=== PATIENT | male | born 1940 | race Caucasian/White ===

== ENCOUNTER → 2018-08-26 11:13 | Outpatient (CLI) | payer MEDICARE, SELFPAY ==
[2018-08-26 09:59] VITALS: BMI 24.2
[2018-08-26 11:53] LABS: Hematocrit 30.6 % (40-54); Hemoglobin 10.2 g/dl (13.0-16.5); Mean Corp Hgb Conc 33.3 g/gl (32-36); Platelet Count 221 K/mm3 (150-450); RBC Distribution Width CV 14.1 % (11.6-14.6); RBC Distribution Width SD 46.6 fl (35.1-43.9)
[2018-08-26 11:56] LABS: Differential Indicated MANUAL DIFF
[2018-08-26 11:58] LABS: International Normalized Ratio 1.2; Prothrombin Time (Protime)PT. 15.2 SECONDS (11.7-14.9)
[2018-08-26 11:59] LABS: Partial Thromboplast Time 37.7 Seconds (24.1-36.2)
[2018-08-26 12:33] LABS: Anisocytosis 1+; Lymphocyte 83 % (19-41); Monocyte 4 % (0-10); Neutrophil-Segmented 13 % (47-70); Platelet Estimate ADEQUATE (ADEQ); Red Cell Morphology N CHROM NORMAL (NORM C&C); Total Cells Counted 100 (MANUAL DIFF)
[2018-08-26 12:34] LABS: POSITIVE COUNT YES; POSITIVE DIFFERENTIAL NO; POSITIVE MORPHOLOGY YES
[2018-08-26 12:35] LABS: Absolute Neutrophil Count 6.1 X10^3/uL (2.0-7.7)
[2018-08-26 12:36] LABS: Absolute Lymphocyte Count 38.97 X10^3/ul (0.83-4.51); Lymphocyte # 38.97 X10^3/ul (4.0)
[2018-08-27 13:55] LABS: Pathologist Review Reviewed
== END ==
PROVIDERS: Referring Provider Internal Medicine Critical Care Medicine; Visit Provider Internal Medicine Critical Care Medicine
DX: R91.8 Other nonspecific abnormal finding of lung field (principal)
CPT/HCPCS: 36415; 85025; 85610; 85730

== ENCOUNTER → 2018-08-29 08:08 | Outpatient (CLI) | payer MEDICARE, SELFPAY ==
[2018-08-26 09:59] VITALS: BMI 24.2
[2018-08-29] VITALS (10 sets, daily range): BP systolic 105–137; BP diastolic 51–72; PULSE 80–85; RESP 16–24; TEMP 36.6; O2SAT 92–98; BMI 24.1
--- NOTE | 2018-08-29 | IMM_PTH ---
PATIENT: JENA BROOKS LOC: CT U#:[id number] AGE/SX: 84/M ROOM: RE08/29/[address]: Dr. Alex Quiroz MD : 1940 BED: DIS: SPEC #: [id number] RECD: 08/30/18 10:10 STATUS: MIRELA REViki #: [id number] ROMEO: 08/29/18 00:[address]: Alex Quiroz DEPT: IMMUNOHISTOCHEMISTRY RECD BY: Roxana Wagner ENTERED: 08/30/18 10:17 SP TYPE: IMMUNO OTHR DR: No Primary Care Phys Tissues: Lung, NOS Procedures: NAPSIN A (add) CK5-6 (add) P40 (add) TTF1 (initial) PHYSICIAN & INSTITUTION [place] [id number] SPECIMEN INFORMATION: Tissue Source: Left upper lobe lung mass, CT-guided biopsy Clinical Info: Left upper lobe lung mass Specimen Number: [id number] CPT code: 72764, 73333 x3 METHODOLOGY: Deparaffinized sections of prefer/formalin-fixed tissue or PAP/DQ stained slides are incubated with monoclonal/polyclonal antibodies/oligonucleotide probes. Localization is made via biotin free immunoperoxidase method. Appropriate controls are performed and reacted as expected. Results on target cell population are indicated in the following table: RESULTS: ANTIBODY / CLONE RESULT P40 (BC28) positive TTF-1 (8G7G3/1) negative Napsin A (Rabbit Polyclonal) negative CK5-6 (D5 & 1684) positive These tests were developed and their performance characteristics determined by [facility]. They may not have been cleared or approved by the U.S. Food and Drug Administration. The FDA has determined that such clearance or approval is not necessary. INTERPRETATION: Left upper lobe lung mass, CT-guided biopsy: The results of immunohistochemistry support the diagnosis of squamous cell carcinoma. CE:jamari 08/30/18
--- NOTE | 2018-08-29 | ASPIGT_PTH ---
PATIENT: JENA BROOKS LOC: [facility] U#:[id number] AGE/SX: 84/M ROOM: RE08/29/[address]: Dr. Alex Quiroz MD : 1940 BED: DIS: SPEC #: [id number] RECD: 08/29/18 10:36 STATUS: MIRELA RUTH #: [id number] ROMEO: 08/29/18 00:[address]: Alex Quiroz DEPT: SURGICAL PATHOLOGY RECD BY: Ryan Saleh ENTERED: 08/29/18 10:36 SP TYPE: ASP RAD OTHR DR: No Primary Care Phys Tissues: Lung, NOS Procedures: FNA Specimen Adequacy Special Stain Group II Mucicarmine Stain (control) Surgery Specimen Level IV Imprint (control) HEADER OPERATION: CT-guided left lung biopsy PRE-OP DIAGNOSIS: Left upper lobe lung mass TISSUE SUBMITTED: Left upper lobe lung mass 20 gauge core x4 MICROSCOPIC DIAGNOSIS Left upper lobe lung mass, CT-guided biopsy: Invasive squamous cell carcinoma, poorly differentiated, with necrosis. Mucin stain with appropriate control is negative. CE:jamari 08/30/18 COMMENT The specimen is evaluated at the time of biopsy by Dr. Emerson. Immediate Evaluation = Atypical cells present. Adequate for evaluation. Immunohistochemistry ([id number]) supports the above diagnosis. MICROSCOPIC DESCRIPTION Slides are reviewed. GROSS DESCRIPTION Received in fixative is one container labeled with the patient's name and designated 20 gauge core x4 left upper lobe lung mass. The specimen consists of four reddish-brown needle core biopsies ranging in length from 0.2 to 0.5 cm. The specimen is totally submitted in one cassette. / CE:jamari 08/29/18 TC:0 CPT: 94847, 37269, 64161
--- NOTE | 2018-08-29 08:10 | CT_ITS ---
PROCEDURE: CT GUIDED CORE NEEDLE BIOPSY OF A left lower lobe LUNG LESION INDICATION: Male, 77 years old. Left lower lobe mass. PHYSICIAN: Dr. Lydia Reina CONSENT: Written informed consent was obtained having explained the risks including hemorrhage and pneumothorax, benefits and alternatives in detail with the patient who accepted the risks and agreed to proceed. Laboratory review and clinical assessment was performed. CONSCIOUS SEDATION PROTOCOL: The Drugs used were: 2 mg Versed, IV., and 50 mcg Fentanyl, IV. The sedation time was: 20 minutes. Conscious sedation was started at 9:22 AM and terminated at 9:42 AM. The conscious sedation protocol was independently monitored. RADIATION DOSAGE (If Supplied By Facility): CTDIvol = ( 18 ) mGy, DLP = ( 376.43 ) mGycm Individualized dose optimization techniques were used for this CT. TECHNIQUE: The patient was placed in the prone position. A noncontrast CT was performed to localize the lesion in the left lower lobe . The skin surface was prepped and draped in a sterile fashion. 1% lidocaine was used for local anesthesia. Using CT guidance, a 20-gauge coaxial biopsy device was advanced to the periphery of the lesion. A total of 4 core specimens were obtained. The specimens were placed in a formalin solution. A post procedure CT demonstrated no adverse sequelae or pneumothorax. The patient tolerated the procedure well without adverse event. A negative biopsy does not exclude malignancy. Further imaging or clinical followup based on patient condition and degree of clinical suspicion for malignancy. Suggest rebiopsy, if biopsy results do not match with clinical scenario. CT/Biopsy/Inj or Needle Placement IMPRESSION: 1. CT directed core needle biopsy of the left lower lobe mass using CT image guidance with image documentation as described. Pathology results are pending. 2. Conscious Sedation protocol utilized with independent monitoring. Electronically Signed: Aramis Freeman, at 10:16 EDT , Service support ,
[2018-08-29] MEDS: Midazolam 2 MG/2 ML Syringe IV (09:22)
[2018-08-29] MEDS: fentaNYL 100 MCG/2 ML Ampul IV (09:22)
--- NOTE | 2018-08-29 09:30 | RAD_ITS ---
STUDY: X-RAY CHEST REASON FOR EXAM: Male, 77 years old. Immediate left post lung biopsy. TECHNIQUE: AP inspiration and expiration views. COMPARISON: None. FINDINGS: The patient is status post left lung biopsy. There is no evidence of pneumothorax. Moderate left pleural effusion with underlying infiltration and/or atelectasis.. RAD/Chest Insp/Exp 2 View IMPRESSION: No evidence of pneumothorax on the immediate post left lung biopsy radiograph. Moderate left pleural effusion with underlying infiltration and/or atelectasis. Electronically Signed: Aramis Freeman, at 13:30 EDT , Service support ,
--- NOTE | 2018-08-29 11:30 | RAD_ITS ---
STUDY: X-RAY CHEST REASON FOR EXAM: Male, 77 years old. 2 hours post lung biopsy. TECHNIQUE: Single AP portable view of the chest. COMPARISON: 29 August 2018 FINDINGS: Left lung atelectasis and moderate layering effusion similar to prior exam. There is no demonstrated pleural abnormality. Normal size heart. Normal mediastinum and bk. Normal visualized pulmonary arteries. There is atherosclerotic calcification of the aortic arch with tortuosity. Normal visualized thoracic spine. Normal visualized ribs, clavicles, and shoulders. There is no demonstrated abnormality of the visualized soft tissue structures of the upper abdomen. RAD/Chest Insp/Exp 2 View IMPRESSION: Overall similar exam compared to previous with moderate layering effusion and left lung atelectasis. Electronically Signed: Hugo Gilman DO at 9:31 EDT , Service support ,
== END ==
PROVIDERS: Referring Provider Internal Medicine Critical Care Medicine; Visit Provider Internal Medicine Critical Care Medicine
DX: C34.12 Malignant neoplasm of upper lobe, left bronchus or lung (principal)
CPT/HCPCS: 32405; 71046; 77012; 88172; 88305; 88313; 88341; 88342; 99156; 99157; J7040; A4216

== ENCOUNTER → 2018-09-13 13:05 | Outpatient (CLI) | payer MEDICARE, SELFPAY ==
[2018-08-29 08:38] VITALS: BMI 24.1
--- NOTE | 2018-09-13 | IMM_PTH ---
PATIENT: JENA BROOKS LOC: [facility]#:[id number] AGE/SX: 84/M ROOM: RE09/13/[address]: Dr. Juan Carlos Pierre DO : 1940 BED: DIS: SPEC #: [id number] RECD: 09/19/18 11:26 STATUS: MIRELA REViki #: [id number] ROMEO: 09/13/18 00:[address]: Juan Carlos Pierre DEPT: IMMUNOHISTOCHEMISTRY RECD BY: Roxana Wagner ENTERED: 09/19/18 11:27 SP TYPE: IMMUNO OTHR DR: No Primary Care Phys Tissues: PARACENTESIS FLUID Procedures: CK5-6 (initial) Christos Ret (add) CK14 (add) YVES (add) P53 (add) P40 (add) PHYSICIAN & INSTITUTION [place] [phone] SPECIMEN INFORMATION: Tissue Source: Paracentesis fluid Clinical Info: Lung CA, pleural effusion Specimen Number: [id number] CPT code: 55687, 22342 x5 METHODOLOGY: Deparaffinized sections of prefer/formalin-fixed tissue or PAP/DQ stained slides are incubated with monoclonal/polyclonal antibodies/oligonucleotide probes. Localization is made via biotin free immunoperoxidase method. Appropriate controls are performed and reacted as expected. Results on target cell population are indicated in the following table: RESULTS: ANTIBODY / CLONE RESULT P40 (BC28) positive, focal CK5-6 (D5 & 1684) positive, focal CK14 (LL002) negative YVES (E29) positive CALRET (polyclonal) negative P53 (DO-7) negative These tests were developed and their performance characteristics determined by [facility]. They may not have been cleared or approved by the U.S. Food and Drug Administration. The FDA has determined that such clearance or approval is not necessary. INTERPRETATION: Paracentesis fluid: Rare atypical epithelioid cells with squamoid immunophenotype. AM:jamari 09/20/18 Case has been reviewed in consultation with Dr. Stephens who concurs with the above diagnosis. IDC:JONEL
--- NOTE | 2018-09-13 | FLU_PTH ---
PATIENT: JENA BROOKS LOC: [facility]#:[id number] AGE/SX: 84/M ROOM: RE09/13/[address]: Dr. Juan Carlos Pierre DO : 1940 BED: DIS: SPEC #: [id number] RECD: 09/13/18 14:18 STATUS: MIRELA MIRANDA #: [id number] ROMEO: 09/13/18 00:[address]: Juan Carlos Pierre DEPT: CYTOLOGY RECD BY: Eamon Mccarthy ENTERED: 09/13/18 14:56 SP TYPE: Fluid OTHR DR: Margo Primary Care Phys Tissues: THORACIC FLUID Procedures: Special Stain Group II Surgery Specimen Level IV Cytospin Fluid HEADER OPERATION: Ultrasound-guided left paracentesis PRE-OP DIAGNOSIS: Lung CA; pleural effusion TISSUE SUBMITTED: Paracentesis fluid for cytology DIAGNOSIS CYTOLOGY Paracentesis fluid for cytology (cytospin and cell block): Rare atypical epithelioid cells with squamoid immunophenotype. AM:jamari 09/16/18 COMMENT Immunohistochemistry ([id number]) supports the above diagnosis. Case has been reviewed in consultation with Dr. Stephens who concurs with the above diagnosis. IDC:SJ CYTOLOGY STUDY Slides are reviewed. CYTOLOGY GROSS Received is 60 ml of cloudy red fluid labeled with the patient's name and and designated per the requisition as thoracentesis. Submitted for cytology preparation including cell block. / 09/13/18 TC:? CPT: 63834, 91184
--- NOTE | 2018-09-13 13:09 | US_ITS ---
PROCEDURE: ULTRASOUND GUIDED THORACENTESIS. DATE: September 13, 2018. INDICATION: Male, 78 years old. Left pleural effusion PHYSICIAN: Aramis Freeman M.D. PROCEDURE: The risks, benefits, and alternatives to the procedure were explained to the patient. The specific risks of bleeding, infection, and pneumothorax requiring chest tube insertion were discussed and accepted. Written informed consent was obtained. Ultrasonographic evaluation of the left lower pleural space was carried out. An adequate pocket was identified. The patient was placed in the sitting, upright position. The overlying skin was prepped and draped in sterile fashion. 1% lidocaine was administered subcutaneously for local anesthesia. Under ultrasound guidance, a 5 Romanian thoracentesis needle/catheter system was advanced into the left posterior lower pleural fluid collection. Approximately 970 mL of blood-tinged fluid was drained. The catheter was removed, and a sterile dressing was applied. A specimen was collected and sent to the laboratory for analysis, as requested by the referring clinician. The patient tolerated the procedure well. A chest x-ray was ordered. US/Thoracentesis W US IMPRESSION: Ultrasound-guided left thoracentesis. Electronically Signed: Aramis Freeman, at 14:51 EDT , Service support ,
[2018-09-13 13:51] VITALS: BP 116/64; PULSE 73; RESP 16; O2SAT 97
[2018-09-13 13:52] VITALS: PULSE 72; RESP 16; O2SAT 93
[2018-09-13 13:57] VITALS: BP 114/63; PULSE 82; RESP 18; O2SAT 94
--- NOTE | 2018-09-13 14:05 | RAD_ITS ---
STUDY: X-RAY CHEST REASON FOR EXAM: Male, 78 years old. Status post left thoracentesis. TECHNIQUE: AP inspiration and expiration views. COMPARISON: Comparison is made with prior examination dated August 29, 2018. FINDINGS: The patient is status post left thoracentesis. There is no evidence of pneumothorax. Residual left pleural-parenchymal changes. Osteopenia and loss of height of the mid dorsal vertebrae. RAD/Chest Insp/Exp 2 View IMPRESSION: Status post left thoracentesis. No evidence of pneumothorax. Electronically Signed: Aramis Freeman, at 14:43 EDT , Service support ,
[2018-09-13 14:12] VITALS: BP 133/76; PULSE 75; RESP 16; O2SAT 96
[2018-09-13 14:20] VITALS: BP 138/72; PULSE 76; RESP 16
[2018-09-13 14:20] LABS: Cytology, Body Fluid / CSF SEE PATHOLOGY REPORT
== END ==
PROVIDERS: Referring Provider Internal Medicine Hematology & Oncology; Visit Provider Internal Medicine Hematology & Oncology
DX: C34.90 Malignant neoplasm of unspecified part of unspecified bronchus or lung (principal); J90 Pleural effusion, not elsewhere classified
CPT/HCPCS: 32555; 71046; 88108; 88305; 88313; 88341; 88342

== ENCOUNTER → 2018-09-16 08:02 | Outpatient (CLI) | payer MEDICARE, SELFPAY ==
[2018-08-29 08:38] VITALS: BMI 24.1
--- NOTE | 2018-09-16 08:00 | PET_ITS ---
EXAMINATION: FDG PET/CT INDICATIONS: An 78-year-old male with reported history of carcinoma of the lung presenting for apparent initial staging examination. COMPARISON EXAMINATION: None available INDEX LESION SIZE SUV INTERPRETATION Left mid posterior lung field, left lower lobe 6.1 x 6.9-cm (frame 193) 11.6 Fulfills quantitative criteria for viable neoplasm Mediastinal structures 16.5-mm (largest) (frame 192) 3.4 (max) Fulfills borderline quantitative criteria for viable neoplasm Left hemithorax pleural interface 9.6 Fulfills quantitative criteria for viable neoplasm Bilateral axillary and infraclavicular lymph nodes, right-left lateral neck 27.5-mm (largest) (frame 210) 5.1 (max) Fulfills quantitative criteria for viable neoplasm Abdominal retroperitoneum, bilateral hemipelvis, left inguinal lymph node distributions 31.9-mm (largest) (frame 59) 4.3 (max) Fulfills quantitative criteria for viable neoplasm TECHNIQUE: Following the intravenous administration of 13.56 mCi of F-18 deoxyglucose via the right hand, multiplanar image acquisitions of the neck, chest, abdomen and pelvis to level of mid thigh, obtained at one hour post radiopharmaceutical administration contemporaneously interpreted with the current CT of the neck, chest, abdomen and pelvis to level of mid thigh, dated 09/16/18 via coregistration reveal: SERUM GLUCOSE LEVEL: 78 mg/dl. HEIGHT: 67 inches. WEIGHT: 167 lbs. FINDINGS: 1. Heterogeneous enhanced glucose metabolism is defined in the left mid posteromedial hemithorax pulmonary parenchyma with a component of central photopenia localized to the superior segment left lower lobe. The calculated maximal standard uptake value is 11.6. The maximal axial diameter of the corresponding parenchymal density-mass on review of CT of the chest dated 09/16/18 is 6.1-cm (transverse) x 6.9-cm (AP). 2. Facilitated FDG concentration is noted in the carinal and subcarinal mediastinum generating a calculated maximal standard uptake value of 3.4. The maximal axial diameter of the largest corresponding hypermetabolic soft tissue density on review of CT of the chest dated 09/16/18 is 16.5-mm (AP). 3. Diffuse increased FDG concentration is noted throughout the left mid-lower hemithorax at the pleural interface generating a calculated maximal standard uptake value of 9.6. 4. Heterogeneous increased FDG concentration is noted in the bilateral axillary, infraclavicular regions, right-left lateral neck involving level IIA-B. The calculated maximal standard uptake value is 5.1. The maximal axial diameter of the largest individual hypermetabolic soft tissue density on review of CT of the chest dated 09/16/18 is 27.5-mm (AP). 5. Facilitated FDG concentration is demonstrated in the bilateral lower abdominal retroperitoneum extending to the right-left hemipelvis and left inguinal lymph node distributions. The calculated maximal standard uptake value is 4.3. The maximal axial diameter of the largest corresponding hypermetabolic soft tissue density on review of CT of the abdomen and pelvis dated 09/16/18 is approximately 31.9-mm (AP). 6. Normal physiologic distribution of the radiopharmaceutical is apparent in the hepatic (3.0) and splenic parenchyma, both renal units, bladder and visualized intestinal tract. The visualized portion of the cerebral cortex demonstrate symmetric and preserved glucose metabolism. Diffuse radiopharmaceutical concentration is noted in all four quadrants of the abdomen and pelvis. Pertinent CT findings are as follows: CHEST: The left hemithorax pleural effusion demonstrates no evidence of quantitatively significant increased glucose metabolism. There is atherosclerotic calcification defined in the thoracic aorta without evidence of dilatation-aneurysm formation. Coronary arterial calcification is observed. Calcified mediastinal soft tissue is non-glucose avid. There are no additional parenchymal densities-nodules noted in the right-left hemithorax demonstrating discernible increased glucose metabolism. ABDOMEN AND PELVIS: Calcification is noted within the pancreatic body. Calcified granuloma formation is defined in the splenic parenchyma. There is atherosclerotic calcification defined in the abdominal aorta without evidence of dilatation-aneurysm formation. Pelvic arterial calcification is observed. A fat containing left inguinal hernia is noted. Right inguinal soft tissue densities with fatty hilus formation are non-glucose avid. Dystrophic calcification is manifest within the prostate gland without evidence of facilitated FDG distribution. SKELETAL: Degenerative changes are noted in the cervical, thoracic and lumbar spine. A compression deformity is noted at the level of the twelfth thoracic vertebra without evidence of facilitated FDG uptake. PET/PET/CT Tumor Base -Thigh Init IMPRESSION: 1. ABNORMAL EXAMINATION INDICATIVE OF MALIGNANT VIABLE NEOPLASM. 2. Increased glucose concentration observed in the left mid posterior hemithorax pulmonary parenchyma, left lower lobe, fulfills quantitative criteria or viable neoplasm. 3. Mediastinal hypermetabolic foci fulfill borderline quantitative criteria for viable neoplasm. 4. Facilitated FDG distribution noted in the left hemithorax pleural interface fulfills quantitative criteria for viable pleural metastasis. (Portillo, et al, Chest 122:1918, 2002). 5. Right and left axillary and infraclavicular, as well as bilateral-lateral neck hypermetabolic foci fulfill quantitative criteria for malignant transformation. 6. There is evidence of apparent viable metastatic disease within the abdominal retroperitoneum, bilateral hemipelvis and left inguinal lymph node distributions. Electronic Signature Rito Dyer D.O. Electronically Signed: Rito Dyer DO at 23:02 EDT Tel , Service support ,
== END ==
PROVIDERS: Referring Provider Internal Medicine Hematology & Oncology; Visit Provider Internal Medicine Hematology & Oncology
DX: C34.32 Malignant neoplasm of lower lobe, left bronchus or lung (principal)
CPT/HCPCS: 78815; A9552

== ENCOUNTER 2018-10-02 10:26 | Inpatient (IN) | payer MEDICARE, SELFPAY ==
[2018-08-29 08:38] VITALS: BMI 24.1
[2018-10-02] VITALS (13 sets, daily range): BP systolic 103–152; BP diastolic 59–93; PULSE 64–98; RESP 16–30; TEMP 36.3–37; O2SAT 89–100; BMI 20.9; BMI 19.8
--- NOTE | 2018-10-02 | FLU_PTH ---
PATIENT: JENA BROOKS LOC: [facility] U#:[id number] AGE/SX: 78/M ROOM: [facility] RE10/03/[address]: Dr. Holli Cintron MD : 1940 BED: 1 DIS: 10/05/2018 SPEC #: [id number] RECD: 10/02/18 16:18 STATUS: MIRELA REQ #: [id number] ROMEO: 10/02/18 00:[address] RECD BY: Eamon Mccarthy ENTERED: 10/03/18 10:13 SP TYPE: Fluid OTHR DR: MD Dr. Alex Urbano MD Dr. Paul Masci, DO No Primary Care Phys Tissues: THORACIC FLUID Procedures: Special Stain Group II Surgery Specimen Level IV Cytospin Fluid HEADER OPERATION: Ultrasound-guided thoracentesis, left PRE-OP DIAGNOSIS: Left pleural effusion TISSUE SUBMITTED: Thoracentesis fluid for cytology DIAGNOSIS CYTOLOGY Thoracentesis fluid for cytology (cytospin and cell block): Rare atypical epithelioid cells noted, suspicious for metastatic squamous cell carcinoma. Consistent with lymphocytic effusion, suspicious for involvement by low grade lymphoproliferative disorder. See comment. SJ:jamari 10/04/18 COMMENT Immunohistochemistry ([id number]) supports the above diagnosis. Correlation with clinical findings and appropriate follow up are necessary. Please make reference to previous specimen ([id number]) left upper lobe lung mass, CT-guided biopsy with diagnosis of invasive squamous cell carcinoma, poorly differentiated with necrosis and ([id number]) paracentesis fluid for cytology with diagnosis of rare atypical epithelioid cells with squamoid immunophenotype. Case has been reviewed in consultation with Dr. Munoz who concurs with the above diagnosis. IDC:AM CYTOLOGY STUDY Slides are reviewed. CYTOLOGY GROSS Received is 30 ml of cloudy red fluid labeled with the patient's name and and designated per the requisition as thoracentesis. Submitted for cytology preparation including cell block. / 10/03/18 TC:5 CPT: 62422, 07340
--- NOTE | 2018-10-02 | IMM_PTH ---
PATIENT: JENA BROOKS LOC: [facility] U#:[id number] AGE/SX: 78/M ROOM: [facility] RE10/03/[address]: Dr. Holli Cintron MD : 1940 BED: 1 DIS: 10/05/2018 SPEC #: [id number] RECD: 10/04/18 09:50 STATUS: MIRELA REQ #: [id number] ROMEO: 10/02/18 00:[address]: Kailash Willard DEPT: IMMUNOHISTOCHEMISTRY RECD BY: Roxana Wagner ENTERED: 10/04/18 09:52 SP TYPE: IMMUNO OTHR DR: MD Dr. Alex Urbano MD Dr. Paul Masci, DO No Primary Care Phys Tissues: THORACIC FLUID Procedures: BCL-2 (add) BCL-6 (add) Christos Ret (add) CD10 (add) CD20 (add) CD23 (add) CD3 (add) CD43 (add) CD45 (add) CD5 (add) CD79A (add) CK5-6 (add) CK8 (add) CYCLIN (add) KI-67 (add) TTF1 (add) P40 (add) CK7 (initial) PHYSICIAN & INSTITUTION [place] [id number] SPECIMEN INFORMATION: Tissue Source: Thoracentesis fluid Clinical Info: Left pleural effusion Specimen Number: [id number] CPT code: 83795, 19001 x17 METHODOLOGY: Deparaffinized sections of prefer/formalin-fixed tissue or PAP/DQ stained slides are incubated with monoclonal/polyclonal antibodies/oligonucleotide probes. Localization is made via biotin free immunoperoxidase method. Appropriate controls are performed and reacted as expected. Results on target cell population are indicated in the following table: RESULTS: ANTIBODY / CLONE RESULT CK7 (OV-TL12/30) negative CK8 (63mejmC24) negative CD3 (PS1) negative CD5 (SP10) negative CD10 (56C6) negative CD20 (L26) positive CD23 (1B12) negative CD43 (L60) negative CD45 (RP2/18) positive CD79a (11E3) positive BCL-2 (bcl-2/100/D5) positive BCL-6 (AX118V/A8) negative Cyclin D1/BCL-1 (SP4) negative TTF-1 (8G7G3/1) negative CALRET (polyclonal) negative CK5-6 (D5 & 1684) positive, rare cells P40 (BC28) positive, rare cells Ki-67 (30-9) positive, very low These tests were developed and their performance characteristics determined by [facility]. They may not have been cleared or approved by the U.S. Food and Drug Administration. The FDA has determined that such clearance or approval is not necessary. INTERPRETATION: Thoracentesis fluid: Rare atypical epithelioid cells noted, suspicious for metastatic squamous cell carcinoma. Consistent with lymphocytic effusion, suspicious for involvement by B-cell low grade lymphoproliferative disorder. Clinical correlation necessary. SJ:jamari 10/07/18 Case has been reviewed in consultation with Dr. Munoz who concurs with the above diagnosis. IDC:AM
[2018-10-02 11:41] LABS: Basophil# 0.08 X10^3/uL; Basophil% 0.2 % (0-1); Eosinophil# 0.03 X10^3/uL; Eosinophils% 0.1 % (0-5); Hematocrit 32.1 % (40-54); Hemoglobin 10.5 g/dL (13.0-16.5); Lymphocyte # 30.27 X10^3/ul (4.0); Lymphocyte % 78.7 % (19-41); Mean Corp Hgb Conc 32.7 g/dL (32-36); Mean Corpuscular Volume 88.7 fL (80-94); Mean Platelet Vol. 10.1 fl (6.2-12.0); Monocyte# 2.64 X10^3/uL; Monocyte% 6.9 % (0-10); NRBC Flagged by Analyzer 0 % (0-5); Neutrophil # 5.34 X10^3/uL (2.7-7.7); Neutrophil % 13.8 % (47-70); POSITIVE COUNT YES; POSITIVE DIFFERENTIAL YES; POSITIVE MORPHOLOGY YES; Platelet Count 271 K/mm3 (150-450); RBC Distribution Width CV 14.2 % (11.6-14.6); RBC Distribution Width SD 45.3 fl (35.1-43.9); Red Blood Count 3.62 M/mm3 (4.6-6.2)
[2018-10-02] MEDS: 0.9% Normal Saline 1,000 ML 1000 ML IV (11:43)
[2018-10-02 11:50] LABS: Anion Gap 3 (5-15); BUN 29 mg/dL (7-18); BUN/Creat Ratio 30.5 RATIO (10-20); Calcium,Total 9.9 mg/dL (8.5-10.1); Chloride 102 mmol/L (98-107); Creatinine, Serum 0.95 mg/dL (0.70-1.30); Differential Indicated SCAN CRITERIA MET; EST Glomerular Filtration Rate 81 mL/min (>60); Est Glom Filt Rate - Afr Amer 98 mL/min (>60); Estimated Creatinine Clearance 59.68 ml/min; Glucose 96 mg/dL (74-106); Potassium 4.2 mmol/L (3.5-5.1); Sodium Level 138 mmol/L (136-145); White Blood Count 38.5 K/mm3 (4.4-11.0)
--- NOTE | 2018-10-02 11:50 | RAD_ITS ---
STUDY: X-RAY CHEST REASON FOR EXAM: Male, 78 years old. Weakness. History of lung cancer. TECHNIQUE: Single AP portable view of the chest. COMPARISON: Chest, September 13, 2018. FINDINGS: There is increasing opacification left hemithorax with minimal aeration seen in the apex. The right lung appears clear. There is no demonstrated right pleural abnormality. Heart size is impossible to evaluate. The right mediastinum and bk appear normal. The aorta is obscured. No visualized osseous changes. There is no demonstrated abnormality of the visualized soft tissue structures of the upper abdomen. RAD/Chest PA and Lateral IMPRESSION: Increasing opacification left hemithorax without other major change from September 13, 2018. Electronically Signed: Matt Newton DO at 12:06 EDT Tel [phone], Service support ,
--- NOTE | 2018-10-02 11:51 | ED.RN ---
LAB RESULTED WBC 38.5, PHYSICIAN NOTIFIED
[2018-10-02 12:14] LABS: Atypical Lymphocyte 3+ %
[2018-10-02 12:15] LABS: Smudge Cells RARE
--- NOTE | 2018-10-02 12:52 | ED.DCSUM_ITS ---
History of Present Illness Chief Complaint: Weakness Informant: Patient, Family Onset: Yesterday Narrative: Patient here with significant other sent over from chemo radiation for increasing weakness. Spouse states weakness started yesterday. Diagnosed with invasive squamous cell cancer left lung last month or the end of July, followed by Dr. Pierre oncology, Dr. Elizabeth radiology oncologist, reports finished his 10th treatment today. Patient was too weak to get out of the wheelchair. I discussed with nursing who called over. For concerns of dehydration and decreased oral intake. Denies any vomiting or diarrhea. Denies cough, denies any urinary symptoms. Lives with his spouse, ambulates with a cane when needed. Denies any pain. He had a smoking history over 50 years ago. Prior similar symptoms: No Past Medical History - Allergies and Home Meds Allergies/Adverse Reactions: Allergies No Known Allergies Allergy (Verified 10/02/18 10:27) Smoking Status: Former smoker - Family History Paternal Family History: Family History (Last Updated 08/26/18 @ 10:03 by Sho Mars) Brother Throat cancer Father Heart disease Emphysema of lung Mother Diabetes Review of Systems General: Denies: Chills, Fever, Sweats Eyes: Denies: Visual changes - bilaterally, Diplopia ENT: Denies: Rhinorrhea, Sore throat Cardiovascular: Denies: Chest pain, Palpitations Respiratory: Denies: Dyspnea, Cough, Dyspnea on exertion Gastrointestinal: Denies: Abdominal pain, Nausea, Vomiting, Diarrhea, Melena, Hematochezia Genitourinary: Denies: Dysuria, Hematuria, Frequency Musculoskeletal: Denies: Back pain, Extremity Pain Skin: Denies: Rash, Wounds Neurological: Reports: Weakness. Denies: Headache, Numbness Physical Exam Vital Signs/Narrative: Vital Signs Temp Pulse Resp BP Pulse Ox 10/02/18 10:28 97.5 F L 93 18 120/66 97 Inital Vital Signs reviewed: Yes General: Cachectic, No Acute Distress Head: Normocephalic, Atraumatic Eyes: Perrl, EOMI ENT: Moist mucous membranes, No rhinorrhea Neck: Supple, Nontender Cardiovascular: Regular rate, Regular rhythm, No murmurs Respiratory: No distress, CTA bilaterally, Chest nontender Abdomen: Soft, Nontender, Nondistended, Normal bowel sounds Back: Nontender, Normal Inspection Extremities: Nontender, No edema Skin: Normal color, No rash Neurological: Alert, Oriented x3, Cranial nerves II-XII grossly intact, Normal Sensation Psychological: Normal affect, Normal Mood Diagnostic/Tx/Re-eval Chest X-Ray - ED: 2 View, Read by Radiologist, Left Effusion Clinical Impression(s) from Imaging Studies Chest X-Ray 10/02/18 11:50 IMPRESSION: Increasing opacification left hemithorax without other major change from September 13, 2018. Electronically Signed: Matt Newton DO at 12:06 EDT Tel [phone], Service support , Abnormal Lab Results 10/02/18 10/02/18 10/02/18 11:28 11:28 11:28 WBC 38.5 H* RBC 3.62 L Hgb 10.5 L Hct 32.1 L MCV 88.7 MCH 29.0 MCHC 32.7 RDW Std Deviation 45.3 H RDW Coeff of Mckenzie 14.2 Plt Count 271 MPV 10.1 Immature Gran % (Auto) 0.300 Neut % (Auto) 13.8 L Lymph % (Auto) 78.7 H [place] % (Auto) 6.9 Eos % (Auto) 0.1 Baso % (Auto) 0.2 Absolute Neuts (auto) Not Reportable Absolute Nucleated RBC 0.00 Nucleated RBC % 0 Differential Comment Diff Path Review May foll Atypical Lymphocytes 3+ Smudge Cells RARE PT 15.8 H INR 1.3 APTT 37.7 H Sodium 138 Potassium 4.2 Chloride 102 Carbon Dioxide 33.0 H Anion Gap 3 L BUN 29 H Creatinine 0.95 Estim Creat Clear Calc 59.68 Est GFR (MDRD) Af Amer 98 Est GFR (MDRD) Non-Af 81 BUN/Creatinine Ratio 30.5 H Glucose 96 Calcium 9.9 Urine Color Urine Clarity Urine pH Ur Specific [place] Urine Protein Urine Glucose (UA) Urine Ketones Urine Occult Blood Urine Nitrite Urine Bilirubin Urine Urobilinogen Ur Leukocyte Esterase Urine RBC Urine WBC Ur Squamous Epith Cells Amorphous Sediment Urine Bacteria Urine Mucus 10/02/18 12:56 WBC RBC Hgb Hct MCV MCH MCHC RDW Std Deviation RDW Coeff of Mckenzie Plt Count MPV Immature Gran % (Auto) Neut % (Auto) Lymph % (Auto) [place] % (Auto) Eos % (Auto) Baso % (Auto) Absolute Neuts (auto) Absolute Nucleated RBC Nucleated RBC % Differential Comment Diff Path Review Atypical Lymphocytes Smudge Cells PT INR APTT Sodium Potassium Chloride Carbon Dioxide Anion Gap BUN Creatinine Estim Creat Clear Calc Est GFR (MDRD) Af Amer Est GFR (MDRD) Non-Af BUN/Creatinine Ratio Glucose Calcium Urine Color Yellow Urine Clarity Sl. Cloudy Urine pH 7.0 Ur Specific [place] 1.010 Urine Protein 15 H Urine Glucose (UA) Normal Urine Ketones Negative Urine Occult Blood 10 H Urine Nitrite Negative Urine Bilirubin Negative Urine Urobilinogen 4 H Ur Leukocyte Esterase Negative Urine RBC 0 SEEN Urine WBC 0 SEEN Ur Squamous Epith Cells 0-5 SEEN Amorphous Sediment 2+ Urine Bacteria 0 SEEN Urine Mucus 0 SEEN - Medical Decision Making Patient alert cooperative vital signs stable on arrival. Complains of generalized weakness, work-up initiated. Given IV fluids were concerns for dehydration. Labs noted normal creatinine and BUN. His white count was 38, however pre-diagnosis of his cancer is up to 47. Urine cath was negative. Chest x-ray notes increased opacification left lung. He had thoracentesis September 12 due to effusion. He was not hypoxic on arrival, however reported by nursing straight cath performed for urine noted increase agitation shortness of breath oxygen was down to 89% on room air he responded to oxygen. Attempted to ambulate patient due to weakness, he was unable to stand up to walk. Weakness likely due to his cancer history. Spouse for admission. Patient became increasing agitated. I spoke with Dr. Willard, request I speak with radiologist for potential thoracentesis today due to increasing pleural effusion. There are checking with her schedule and surgical scrub technician see if that can be done. Patient increasing agitation, he initially was taken off his oxygen, discussed extensively with patient and spouse the need to maintain oxygen for comfort at this time when he is agitated oxygen would drop down. When resting it would improve. Discussed CODE STATUS spouse has confirmed full code at this time. Discussed the possibility of increasing agitation if he is not cooperative he may need medications which can cause respiratory depression and worsening symptoms that can lead to a ventilator. She understands. He is admitted to PCU, still waiting for radiology response. ED Disposition - Plan for ED Patient: Disposition: [facility] Diagnosis: Recurrent left pleural effusion, Weakness, Invasive squamous cell lung cancer
[2018-10-02 13:08] LABS: Bacteria 0 SEEN /hpf (None Seen); Mucous, Urine 0 SEEN /hpf (<or=2+); Red Blood Cells-Urine 0 SEEN /hpf (0-5); White Blood Cells 0 SEEN /hpf (0-5)
[2018-10-02 13:16] LABS: Color, Urine Yellow (Yellow); Glucose, Dipstick Normal (Normal); Ketone-Dipstick Negative (Negative); Leukocyte Esterase-Dipstick Negative /ul (Negative); Nitrite-Dipstick Negative (Negative); Occult Blood-Urine 10 /ul (Negative); Protein-Dipstick 15 mg/dl (Negative); Urine Bilirubin Dipstick Negative (Negative); Urine Clarity Sl. Cloudy (Clear); Urine Urobilinogen 4 mg/dl (Normal)
[2018-10-02 13:29] LABS: Amorphous Sediment 2+; Squamous Epithelial Cells - UA 0-5 SEEN /hpf (0-5)
[2018-10-02 14:35] LABS: International Normalized Ratio 1.3; Prothrombin Time (Protime)PT. 15.8 SECONDS (11.7-14.9)
[2018-10-02 14:36] LABS: Partial Thromboplast Time 37.7 Seconds (24.1-36.2)
--- NOTE | 2018-10-02 14:36 | HP.PCM_ITS ---
Problem List (1) Recurrent malignant pleural effusion Status: Chronic (2) Squamous cell cancer of left lung Status: Chronic (3) Generalized weakness Status: Acute (4) Acute respiratory failure with hypoxia Status: Acute History of Present Illness Date of Admission: 10/02/18 Chief Complaint: Shortness of breath progressive worsening for 2 to 3 days The patient is a 78 year old M with CT-guided left lung biopsy diagnosis of invasive squamous cell carcinoma, poorly differentiated with necrosis on 08/29/2018 sent to ED from her radiotherapy after 10 sessions today with generalized weakness. The patient is irritable and does not want to answer any questions as he wants to go home. Patient is obviously short of breath in ED and does not know much about the recent history of shortness of breath, fever or chills or other review of system. At the best, patient says short of breath for 2 to 3 days got worse today along with chills and shivering. The patient was found hypoxic in ED 89% on room air, respiratory rate 23, temperature 97.5 ?F pulse 66/min. Chest x-ray PA and lateral reviewed and shows complete whiteout of left lung. The patient had previous echo cited guided ultrasound on 09/13/2018 for the cytology reviewed and reported as rare atypical epithelioid cells with a squamous immunophenotype suggestive of recurrent malignant pleural effusion. 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) Medical History: Medical History (Last Updated 08/26/18 @ 10:08 by Sho Mars) History of pneumonia Z87.01 Localized swelling, mass or lump of neck R22.1 Other nonspecific abnormal finding of lung field R91.8 Allergies No Known Allergies Allergy (Verified 10/02/18 10:27) Home Medications: Ambulatory Orders Medication Instructions Recorded Aspirin [Aspirin, Baby] 81 mg PO DAILY@0800 10/02/18 Smoking Status: Former smoker - *Family History Paternal Family History: Family History (Last Updated 08/26/18 @ 10:03 by Sho Mars) Brother Throat cancer Father Heart disease Emphysema of lung Mother Diabetes Review of Systems Constitutional: Reports: Chills, Fever, Weakness, Fatigue. Denies: Weight Change HEENT: Denies: Head Aches, Sinus Congestion, Sinus Drainage Cardiovascular: Denies: Chest Pain, Palpitations Respiratory: Reports: Shortness of Breath, Shortness of breath at rest, Shortness of breath upon exertion. Denies: Cough, Sputum production Gastrointestinal: Denies: Abdominal Pain, Nausea, Vomiting Genitourinary: Denies: Dysuria Musculoskeletal: Denies: Joint Pain, Joint Tenderness Skin: Denies: Rash, Wounds Neurological: Reports: Balance problems, - - Uses a wheeled walker. Denies: Focal weakness, Numbness, Tingling Psychiatric: Denies: Homicidal Ideations, Suicidal Ideations Hematologic/ Lymphatic: Denies: Easy Bruising, Easy Bleeding Unable to obtain accurate/complete ROS d/t: Patient is not able to answer any question as he is irritable VTE Information - Inpt Only VTE Present on Admission: No VTE Mechan Device Prophylaxis: None VTE Pharm Prophylaxis ordered?: Yes Patient Problems: Active and Suspected Problems (Last Updated 08/26/18 @ 10:08 by Sho Mars) Generalized weakness (Acute) Acute respiratory failure with hypoxia (Acute) - Physical Exam General: Lethargic, - - Irritable, short of breath, not cooperative HEENT: Atraumatic, PERRLA, EOMI, Normocephalic Oral: Dry Mucosa Neck: Supple, No JVD, Negative Carotid Bruits Lungs: Short of Breath, Tachypneic, Using Accessory Muscles, - - No air entry in the left lung. Left lung completely white out. Cardiovascular: Regular rate, Regular Rhythm, Normal S1, Normal S2, No murmurs Abdomen: Bowel Sounds Present, Soft, Non Tender, Non-Distended Extremities: No edema, Capillary Refill Less than 3 Seconds Skin: No rashes, No breakdown Musculoskeletal: No Tenderness to Palpation of Joints or Extremities, Arthritic Changes, Muscle Wasting Neurological: Cranial nerves II-XII grossly intact, Deep Tendon Reflexes 2+/4 and Symmetrical, Neuro grossly intact Psych/Mental Status: Normal Affect, Appropriate Vital Signs Temp Pulse Resp BP Pulse Ox 97.5 F L 64 16 120/88 H 94 10/02/18 10:28 10/02/18 14:01 10/02/18 14:01 10/02/18 14:01 10/02/18 14:01 Oxygen Delivery Method Nasal Cannula Weight: 150 lb Body Mass Index (BMI) 20.9 Laboratory Tests Past 24 Hrs 10/02/18 10/02/18 10/02/18 11:28 11:28 11:28 WBC 38.5 H* RBC 3.62 L Hgb 10.5 L Hct 32.1 L MCV 88.7 MCH 29.0 MCHC 32.7 RDW Std Deviation 45.3 H RDW Coeff of Mckenzie 14.2 Plt Count 271 MPV 10.1 Immature Gran % (Auto) 0.300 Neut % (Auto) 13.8 L Lymph % (Auto) 78.7 H [place] % (Auto) 6.9 Eos % (Auto) 0.1 Baso % (Auto) 0.2 Absolute Neuts (auto) Not Reportable Absolute Nucleated RBC 0.00 Nucleated RBC % 0 Differential Comment Diff Path Review May foll Atypical Lymphocytes 3+ Smudge Cells RARE PT Pending INR Pending APTT Pending Sodium 138 Potassium 4.2 Chloride 102 Carbon Dioxide 33.0 H Anion Gap 3 L BUN 29 H Creatinine 0.95 Estim Creat Clear Calc 59.68 Est GFR (MDRD) Af Amer 98 Est GFR (MDRD) Non-Af 81 BUN/Creatinine Ratio 30.5 H Glucose 96 Calcium 9.9 Urine Color Urine Clarity Urine pH Ur Specific [place] Urine Protein Urine Glucose (UA) Urine Ketones Urine Occult Blood Urine Nitrite Urine Bilirubin Urine Urobilinogen Ur Leukocyte Esterase Urine RBC Urine WBC Ur Squamous Epith Cells Amorphous Sediment Urine Bacteria Urine Mucus 10/02/18 12:56 WBC RBC Hgb Hct MCV MCH MCHC RDW Std Deviation RDW Coeff of Mckenzie Plt Count MPV Immature Gran % (Auto) Neut % (Auto) Lymph % (Auto) [place] % (Auto) Eos % (Auto) Baso % (Auto) Absolute Neuts (auto) Absolute Nucleated RBC Nucleated RBC % Differential Comment Diff Path Review Atypical Lymphocytes Smudge Cells PT INR APTT Sodium Potassium Chloride Carbon Dioxide Anion Gap BUN Creatinine Estim Creat Clear Calc Est GFR (MDRD) Af Amer Est GFR (MDRD) Non-Af BUN/Creatinine Ratio Glucose Calcium Urine Color Yellow Urine Clarity Sl. Cloudy Urine pH 7.0 Ur Specific [place] 1.010 Urine Protein 15 H Urine Glucose (UA) Normal Urine Ketones Negative Urine Occult Blood 10 H Urine Nitrite Negative Urine Bilirubin Negative Urine Urobilinogen 4 H Ur Leukocyte Esterase Negative Urine RBC 0 SEEN Urine WBC 0 SEEN Ur Squamous Epith Cells 0-5 SEEN Amorphous Sediment 2+ Urine Bacteria 0 SEEN Urine Mucus 0 SEEN Assessment/Plan All Active Problems (Last Updated 08/26/18 @ 10:08 by Sho Mars) Generalized weakness (Acute) Acute respiratory failure with hypoxia (Acute) Lung mass (Acute) The patient is a 78 year old M with CT-guided left lung biopsy diagnosis of invasive squamous cell carcinoma, poorly differentiated with necrosis on 08/29/2018 sent to ED from her radiotherapy after 10 sessions today with generalized weakness. Patient is obviously short of breath in ED and does not know much about the recent history of shortness of breath, fever or chills or other review of system. The patient had previous ultrasound guided thoracocentesis on 09/13/2018. Fluid cytology reviewed and reported as rare atypical epithelioid cells with a squamous immunophenotype suggestive of recurrent malignant pleural effusion. Basic blood work shows leukocytosis 38.5 thousand which is better than the previous 47,000 in August 2018, and anemia H&H 10.5/32.1, CO2 33, anion gap 3 1. Acute hypoxic respiratory failure secondary to recurrent left-sided malignant effusion office, squamous cell cancer of left lung: ED physician Dr. Bang discussed with the radiologist in my presence for possible ultrasound-guided diagnostic and therapeutic thoracocentesis to relieve the shortness of breath and accompanied respiratory failure. Discussed with the nurse's assistant and he agreed for same. For meantime, advised Ventimask as patient is pulling out nasal cannula and pulse oximetry probe. Consult nurse's assistant. 2. Left squamous cell cancer with recurrent effusion: The patient had CT-guided left lung biopsy diagnosis of invasive squamous cell carcinoma, poorly differentiated with necrosis on 08/29/2018. Patient is being followed by Dr. Pierre. After discussion with nurse's assistant, at that time perhaps in August 2018, the patient and did not make any decision about advanced directive/CODE STATUS but said they will discuss with oncologist. Oncology consult for further prognostication of his, cell cancer, possible evaluation for pleural catheter for palliative relief of shortness of breath/recurrent pleural effusion 3. Generalized weakness, decreasing activities of daily living, low functional capacity, diffuse muscle atrophy of extremities, ribs and intervertebral muscles history of severe protein calorie malnutrition: This this indicates poor prognosis in view of squamous cell cancer of lung. Rotoprinter consult. The patient gave a hint of weight of approximately 170 pounds in March 2018, therefore lost about 20 pounds in 6 months DVT prophylaxis: Lovenox 40 mg subcu daily after 6 hours of thoracocentesis. Bilateral SCDs. Advanced directive/MOLST/CODE STATUS: Discussed with the patient's Ms. Nuria Asher. Patient not able to answer any question regarding discussion of CODE STATUS. The patient's tries to avoid the discussion of advanced directive/CODE STATUS. She states he gets scared with the question. But at the best, try to maintain full code until further decision is made. As per the patient's , patient want artificial life support including intubation, tube feed, ventilator and/chest compression. Total time spent in [id number] encounter in discussion of advanced directive 18 minutes. Laboratory Results 10/02/18 11:28: WBC 38.5 H*, RBC 3.62 L, Hgb 10.5 L, Hct 32.1 L, MCV 88.7, MCH 29.0, MCHC 32.7, RDW Std Deviation 45.3 H, RDW Coeff of Mckenzie 14.2, Plt Count 271, MPV 10.1, Immature Gran % (Auto) 0.300, Neut % (Auto) 13.8 L, Lymph % (Auto) 78.7 H, [place] % (Auto) 6.9, Eos % (Auto) 0.1, Baso % (Auto) 0.2, Absolute Neuts (auto) Not Reportable, Absolute Nucleated RBC 0.00, Nucleated RBC % 0, Differential Comment , Diff Path Review May foll, Atypical Lymphocytes 3+, Smudge Cells RARE 10/02/18 11:28: Sodium 138, Potassium 4.2, Chloride 102, Carbon Dioxide 33.0 H, Anion Gap 3 L, BUN 29 H, Creatinine 0.95, Estim Creat Clear Calc 59.68, Est GFR (MDRD) Af Amer 98, Est GFR (MDRD) Non-Af 81, BUN/Creatinine Ratio 30.5 H, Glucose 96, Calcium 9.9 10/02/18 11:28: PT 15.8 H, INR 1.3, APTT 37.7 H '10/02/18 12:56: Urine Color Yellow, Urine Clarity Sl. Cloudy, Urine pH 7.0, Ur Specific [place] 1.010, Urine Protein 15 H, Urine Glucose (UA) Normal, Urine Ketones Negative, Urine Occult Blood 10 H, Urine Nitrite Negative, Urine Bilirubin Negative, Urine Urobilinogen 4 H, Ur Leukocyte Esterase Negative, Urine RBC 0 SEEN, Urine WBC 0 SEEN, Ur Squamous Epith Cells 0-5 SEEN, Amorphous Sediment 2+, Urine Bacteria 0 SEEN, Urine Mucus 0 SEEN Code Visit Inpatient E&M: 00591 Init Hosp L3 Procedures: 18433 Advncd Care Plan 30 Min
--- NOTE | 2018-10-02 15:38 | US_ITS ---
STUDY: ULTRASOUND GUIDED THORACENTESIS REASON FOR EXAM: Male, 78 years old. Worsening shortness of breath, left pleural effusion TECHNIQUE: Fluoroscopically guided COMPARISON: None. FINDINGS: After informed consent was obtained, patient was placed sitting upright along the bedside with arms draped over the bedside table. An appropriate site for thoracentesis in the left hemithorax was determined using sonographic guidance. The area was prepped and draped in a sterile manner, and 2% lidocaine was used as local anesthetic. Under sonographic guidance, a valved Heuy drainage catheter was placed into the left hemithorax without difficulty. Approximately 120 mL of blood-tinged serous fluid was withdrawn from the left hemithorax and sent to the lab for further evaluation per referring physician's orders. Another 1000 mL of blood-tinged serous fluid was withdrawn from the left hemithorax. No further fluid was able to be withdrawn because of patient's inability to sit upright or cooperate with the examination. Patient tolerated the procedure well with no immediate complications and was sent to the floor in stable condition. US/Thoracentesis W US IMPRESSION: Successful fluoroscopically guided thoracentesis Electronically Signed: Junior Magaña MD at 8:14 EDT , Service support ,
--- NOTE | 2018-10-02 16:11 | RAD_ITS ---
STUDY: X-RAY CHEST REASON FOR EXAM: Male, 78 years old. Post thoracentesis TECHNIQUE: Single AP portable view of the chest. COMPARISON: Earlier in the day FINDINGS: No postprocedural pneumothorax noted. EKG leads overlie the chest. Right lung is expanded without a superimposed process. After thoracentesis there is now some visualization of the left lung but very limited normal left lung is noted, there is persistent near complete opacification of the left hemithorax, likely combination of effusion and atelectasis and perhaps infiltrate. There is no mediastinal shift. Heart, mediastinum, and aorta cannot be evaluated due to the opacification in the left hemithorax There are diffuse degenerative changes of the visualized thoracic spine. There is degenerative osteoarthritis of the bilateral shoulders. There is no demonstrated abnormality of the visualized soft tissue structures of the upper abdomen. RAD/Chest 1 View IMPRESSION: No postprocedural pneumothorax Despite removing 1 L of fluid from the left hemithorax, there is only minimal left lung visualized after the thoracentesis. There is near complete opacification of the left hemithorax, a likely combination of persistent effusion, atelectasis and/or infiltrate. Right lung is free of superimposed process Electronically Signed: Junior Magaña MD at 8:16 EDT , Service support ,
[2018-10-02 17:08] LABS: Cytology, Body Fluid / CSF SEE PATHOLOGY REPORT
[2018-10-02 17:24] LABS: ALB/GLOB Ratio 0.4 RATIO (0.9-2.4); Globulin 6.4 g/dL (2.2-4.2); LDH 202 U/L (87-241); Protein, Total 8.8 g/dL (6.4-8.2)
[2018-10-02 17:32] LABS: LDH,Body Fluid 226 Units/l (Not Establ.); Protein, Body Fluid 4.7 g/dL (Not Establ.)
[2018-10-02 17:34] LABS: Body Fluid Mononuclear WBC # 0.661 10^3/uL; Body Fluid Mononuclear WBC % 94.7 %; Body Fluid Polynuclear WBC # 0.037 10^3/uL; Body Fluid Polynuclear WBC % 5.3 %; Body Fluid Total Cells Counted 0.713 10^3/ul; Red Cell Count/Body Fluid 0.047 10^6/ul; White Blood Count/Body Fluid 0.698 10^3/uL
[2018-10-02 17:35] LABS: Auto B Fluid Analyzer BKGD Ct COUNTS W/IN LIMITS (W/IN LIMITS)
[2018-10-02 17:37] LABS: Source- Body Fluid THORACENTESIS
[2018-10-02 17:38] LABS: Appearance/Body Fluid CLOUDY; Color/Body Fluid RED
[2018-10-02 17:41] LABS: Glucose, Body Fluid 67 mg/dL (40-70)
[2018-10-02] MEDS: 0.9% Normal Saline 1,000 ML 100 ML IV (17:54)
[2018-10-02] MEDS: 0.9% NaCl Peripheral Flush Adult/Peds IV (17:56)
[2018-10-02 18:32] LABS: Lymphocytes 79 %; Macrophages 4 %; Monocytes 13 %; Neutrophil (Segs) 4 %
[2018-10-02 18:34] LABS: Body Fluid QC Type(s) BF3Q
[2018-10-02] MEDS: Enoxaparin 40 MG/0.4 ML Syringe SC (23:22)
[2018-10-03] VITALS (14 sets, daily range): BP systolic 105–121; BP diastolic 56–76; PULSE 84–124; RESP 20–22; TEMP 36.4–37.2; O2SAT 87–98
[2018-10-03] MEDS: Albuterol 2.5 MG/3 ML VIAL.NEB. INHALATION (02:43)
[2018-10-03 06:24] LABS: Basophil# 0.06 X10^3/uL; Basophil% 0.2 % (0-1); Eosinophils% 0.3 % (0-5); Hemoglobin 9.3 g/dL (13.0-16.5); Lymphocyte # 24.28 X10^3/ul (4.0); Lymphocyte % 75.4 % (19-41); Mean Corp Hgb Conc 32.1 g/dL (32-36); Mean Corpuscular Hgb 29.2 pg (27.0-32.0); Mean Corpuscular Volume 90.9 fL (80-94); Mean Platelet Vol. 10.5 fl (6.2-12.0); Monocyte# 2.61 X10^3/uL; Monocyte% 8.1 % (0-10); NRBC Flagged by Analyzer 0 % (0-5); Neutrophil # 5.04 X10^3/uL (2.7-7.7); Neutrophil % 15.7 % (47-70); POSITIVE COUNT YES; POSITIVE DIFFERENTIAL YES; POSITIVE MORPHOLOGY YES; Platelet Count 232 K/mm3 (150-450); RBC Distribution Width CV 14.4 % (11.6-14.6); RBC Distribution Width SD 47.1 fl (35.1-43.9); Red Blood Count 3.19 M/mm3 (4.6-6.2); White Blood Count 32.2 K/mm3 (4.4-11.0)
[2018-10-03 06:26] LABS: Anion Gap 6 (5-15); BUN 25 mg/dL (7-18); BUN/Creat Ratio 33.7 RATIO (10-20); Calcium,Total 9.1 mg/dL (8.5-10.1); Chloride 108 mmol/L (98-107); Creatinine, Serum 0.74 mg/dL (0.70-1.30); EST Glomerular Filtration Rate 108 mL/min (>60); Est Glom Filt Rate - Afr Amer 131 mL/min (>60); Glucose 79 mg/dL (74-106); Potassium 4.2 mmol/L (3.5-5.1); Sodium Level 144 mmol/L (136-145)
[2018-10-03 06:37] LABS: Differential Indicated SCAN CRITERIA MET
--- NOTE | 2018-10-03 08:17 | CPS ---
attempted to place nasal cannula on pt but pt refuses.
--- NOTE | 2018-10-03 08:23 | CON.PCM_ITS ---
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 Patient reportedly started to have worsening weakness over the previous 24 hours, but has been under therapy for invasive squamous cell lung cancer since the end of July by Dr. Pierre. Patient reportedly had his 10th radiation treatment on the day of presentation and was too weak to get out of the wheelchair. There was some concern for dehydration and decreased oral intake. Patient did not have any reported nausea, vomiting, diarrhea or urinary symptoms. No increased cough was reported. In the ER, patient was given IV fluids for dehydration. Patient did have a leukocytosis of 38, but this was improved from previous level of 47. Chest x- ray showed complete opacification of the left lung despite having a th oracentesis on September 12. Patient was noted to be hypoxic with exertion to 89%. Patient also had some issues with delirium. Immediately after the ER, patient did go for a thoracentesis and reportedly had 1170 cc removed, but documentation is not completed at this time. Patient was admitted to the floor for further evaluation. This morning, patient was very confused. Patient was alert and oriented to self only. Patient was unable to comprehend a chair. Patient denied any pain or shortness of breath, but was noted to be 87% on room air. Patient was not open to having supplemental oxygen in place. Nursing did report that patient had been mildly aggressive with nursing staff overnight. Unable to obtain a full review of systems secondary to patient's mental status and agitation. 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) Medical History: Medical History (Last Updated 08/26/18 @ 10:08 by Sho Mars) History of pneumonia Z87.01 Localized swelling, mass or lump of neck R22.1 Other nonspecific abnormal finding of lung field R91.8 Allergies No Known Allergies Allergy (Verified 10/02/18 10:27) Home Medications: Ambulatory Orders Medication Instructions Recorded Aspirin [Aspirin, Baby] 81 mg PO DAILY@0800 10/02/18 Smoking Status: Former smoker - *Family History Paternal Family History: Family History (Last Updated 08/26/18 @ 10:03 by Sho Mars) Brother Throat cancer Father Heart disease Emphysema of lung Mother Diabetes Patient Problems: Active and Suspected Problems (Last Updated 08/26/18 @ 10:08 by Sho Mars) Generalized weakness (Acute) Acute respiratory failure with hypoxia (Acute) Objective: All imaging was personally reviewed. Chest x-ray did show opacification of the left lung and postthoracentesis film did show some improvement in left upper lobe aeration, but still with consistent collapse of the left lower lobe. - Physical Exam General: Confused, Disoriented, Non-Cooperative, - - Appears stated age. No grimacing or accessory muscle use noted HEENT: Atraumatic, PERRLA, EOMI, Normocephalic, - - Slight temporal wasting noted. Oral: No Gingival or Mucosal Lesions/ Ulcerations, Dry Mucosa Neck: Supple, No JVD, No Nodes, Trachea Midline Lungs: No rhonchi - Sporadic, Diminished - Left greater than right, Wheezes Cardiovascular: Regular rate, Regular Rhythm, Normal S1, Normal S2, No murmurs, No rub noted, No Gallop Abdomen: Bowel Sounds Present, Soft, Non Tender, Non-Distended Extremities: No clubbing, No cyanosis, No edema, Capillary Refill Less than 3 Seconds Skin: No rashes, No breakdown Musculoskeletal: No Tenderness to Palpation of Joints or Extremities Lymphatic: No Cervical, Supraclavicular, or Inguinal Adenopathy Neurological: Cranial nerves II-XII grossly intact, Neuro grossly intact, Motor Exam 5/5 strength throughout Psych/Mental Status: Anxious, Impulsive, Restless Vital Signs Temp Pulse Resp BP Pulse Ox 36.4 C L 84 22 H 106/63 87 10/03/18 02:15 10/03/18 07:30 10/03/18 02:44 10/03/18 02:15 10/03/18 08:00 Oxygen Flow Rate (L/min) [3] 6 Oxygen Flow Rate (L/min) [2] 6 Oxygen Flow Rate (L/min) [1 ( 6 Initial Baseline)] Oxygen Flow Rate (L/min) 4 Oxygen Delivery Method [3] Nasal Cannula Oxygen Delivery Method [2] Nasal Cannula Oxygen Delivery Method [1 ( Nasal Cannula Initial Baseline)] Oxygen Delivery Method Room Air Weight: 64.2 kg Body Mass Index (BMI) 19.8 Intake and Output for Last 24 Hours 10/01/18 10/02/18 10/03/18 23:59 23:59 23:59 Intake Total 759.4 / 759.4 0 / 0 Balance 759.4 / 759.4 0 / 0 Laboratory Tests Past 24 Hrs 10/02/18 10/02/18 10/02/18 11:28 11:28 11:28 WBC 38.5 H* RBC 3.62 L Hgb 10.5 L Hct 32.1 L MCV 88.7 MCH 29.0 MCHC 32.7 RDW Std Deviation 45.3 H RDW Coeff of Mckenzie 14.2 Plt Count 271 MPV 10.1 Immature Gran % (Auto) 0.300 Neut % (Auto) 13.8 L Lymph % (Auto) 78.7 H [place] % (Auto) 6.9 Eos % (Auto) 0.1 Baso % (Auto) 0.2 Absolute Neuts (auto) Not Reportable Absolute Nucleated RBC 0.00 Nucleated RBC % 0 Differential Comment Diff Path Review May foll Atypical Lymphocytes 3+ Smudge Cells RARE PT 15.8 H INR 1.3 APTT 37.7 H Sodium 138 Potassium 4.2 Chloride 102 Carbon Dioxide 33.0 H Anion Gap 3 L BUN 29 H Creatinine 0.95 Estim Creat Clear Calc 59.68 Est GFR (MDRD) Af Amer 98 Est GFR (MDRD) Non-Af 81 BUN/Creatinine Ratio 30.5 H Glucose 96 Calcium 9.9 Lactate Dehydrogenase Total Protein Globulin Albumin/Globulin Ratio Urine Color Urine Clarity Urine pH Ur Specific [place] Urine Protein Urine Glucose (UA) Urine Ketones Urine Occult Blood Urine Nitrite Urine Bilirubin Urine Urobilinogen Ur Leukocyte Esterase Urine RBC Urine WBC Ur Squamous Epith Cells Amorphous Sediment Urine Bacteria Urine Mucus Fluid Source Fluid Color Fluid Appearance Fluid WBC Fluid RBC Fluid Tot Cell Count Fld Polynuclear WBCs # Fld Polynuclear WBCs % Fluid Mononuclear WBCs Fld Mononuclear WBCs % Fluid Neutrophils Fluid Lymphocytes Fluid Monocytes Fluid Macrophages Fl Pathologist Comment Fluid Glucose Fluid Total Protein Fluid LDH Fluid Comment 2 Miscellaneous Cytology 10/02/18 10/02/18 10/02/18 11:28 12:56 16:10 WBC RBC Hgb Hct MCV MCH MCHC RDW Std Deviation RDW Coeff of Mckenzie Plt Count MPV Immature Gran % (Auto) Neut % (Auto) Lymph % (Auto) [place] % (Auto) Eos % (Auto) Baso % (Auto) Absolute Neuts (auto) Absolute Nucleated RBC Nucleated RBC % Differential Comment Diff Path Review Atypical Lymphocytes Smudge Cells PT INR APTT Sodium Potassium Chloride Carbon Dioxide Anion Gap BUN Creatinine Estim Creat Clear Calc Est GFR (MDRD) Af Amer Est GFR (MDRD) Non-Af BUN/Creatinine Ratio Glucose Calcium Lactate Dehydrogenase 202 Total Protein 8.8 H Globulin 6.4 H Albumin/Globulin Ratio 0.4 L Urine Color Yellow Urine Clarity Sl. Cloudy Urine pH 7.0 Ur Specific [place] 1.010 Urine Protein 15 H Urine Glucose (UA) Normal Urine Ketones Negative Urine Occult Blood 10 H Urine Nitrite Negative Urine Bilirubin Negative Urine Urobilinogen 4 H Ur Leukocyte Esterase Negative Urine RBC 0 SEEN Urine WBC 0 SEEN Ur Squamous Epith Cells 0-5 SEEN Amorphous Sediment 2+ Urine Bacteria 0 SEEN Urine Mucus 0 SEEN Fluid Source Fluid Color Fluid Appearance Fluid WBC Fluid RBC Fluid Tot Cell Count Fld Polynuclear WBCs # Fld Polynuclear WBCs % Fluid Mononuclear WBCs Fld Mononuclear WBCs % Fluid Neutrophils Fluid Lymphocytes Fluid Monocytes Fluid Macrophages Fl Pathologist Comment Fluid Glucose 67 Fluid Total Protein Fluid LDH Fluid Comment 2 Miscellaneous Cytology 10/02/18 10/02/18 10/02/18 16:10 16:10 16:10 WBC RBC Hgb Hct MCV MCH MCHC RDW Std Deviation RDW Coeff of Mckenzie Plt Count MPV Immature Gran % (Auto) Neut % (Auto) Lymph % (Auto) [place] % (Auto) Eos % (Auto) Baso % (Auto) Absolute Neuts (auto) Absolute Nucleated RBC Nucleated RBC % Differential Comment Diff Path Review Atypical Lymphocytes Smudge Cells PT INR APTT Sodium Potassium Chloride Carbon Dioxide Anion Gap BUN Creatinine Estim Creat Clear Calc Est GFR (MDRD) Af Amer Est GFR (MDRD) Non-Af BUN/Creatinine Ratio Glucose Calcium Lactate Dehydrogenase Total Protein Globulin Albumin/Globulin Ratio Urine Color Urine Clarity Urine pH Ur Specific [place] Urine Protein Urine Glucose (UA) Urine Ketones Urine Occult Blood Urine Nitrite Urine Bilirubin Urine Urobilinogen Ur Leukocyte Esterase Urine RBC Urine WBC Ur Squamous Epith Cells Amorphous Sediment Urine Bacteria Urine Mucus Fluid Source THORACENTESIS Fluid Color RED Fluid Appearance CLOUDY Fluid WBC 0.698 Fluid RBC 0.047 Fluid Tot Cell Count 0.713 Fld Polynuclear WBCs # 0.037 Fld Polynuclear WBCs % 5.3 Fluid Mononuclear WBCs 0.661 Fld Mononuclear WBCs % 94.7 Fluid Neutrophils 4 Fluid Lymphocytes 79 Fluid Monocytes 13 Fluid Macrophages 4 Fl Pathologist Comment May follow Fluid Glucose Fluid Total Protein 4.7 Fluid LDH 226 Fluid Comment 2 SEE COMMENT Miscellaneous Cytology Pending 10/03/18 10/03/18 05:25 05:25 WBC 32.2 H* RBC 3.19 L Hgb 9.3 L Hct 29.0 L MCV 90.9 MCH 29.2 MCHC 32.1 RDW Std Deviation 47.1 H RDW Coeff of Mckenzie 14.4 Plt Count 232 MPV 10.5 Immature Gran % (Auto) 0.300 Neut % (Auto) 15.7 L Lymph % (Auto) 75.4 H [place] % (Auto) 8.1 Eos % (Auto) 0.3 Baso % (Auto) 0.2 Absolute Neuts (auto) Not Reportable Absolute Nucleated RBC 0.00 Nucleated RBC % 0 Differential Comment COMMENT Diff Path Review May foll Atypical Lymphocytes Smudge Cells PT INR APTT Sodium 144 Potassium 4.2 Chloride 108 H Carbon Dioxide 30.0 Anion Gap 6 BUN 25 H Creatinine 0.74 Estim Creat Clear Calc 53.50 Est GFR (MDRD) Af Amer 131 Est GFR (MDRD) Non-Af 108 BUN/Creatinine Ratio 33.7 H Glucose 79 Calcium 9.1 Lactate Dehydrogenase Total Protein Globulin Albumin/Globulin Ratio Urine Color Urine Clarity Urine pH Ur Specific [place] Urine Protein Urine Glucose (UA) Urine Ketones Urine Occult Blood Urine Nitrite Urine Bilirubin Urine Urobilinogen Ur Leukocyte Esterase Urine RBC Urine WBC Ur Squamous Epith Cells Amorphous Sediment Urine Bacteria Urine Mucus Fluid Source Fluid Color Fluid Appearance Fluid WBC Fluid RBC Fluid Tot Cell Count Fld Polynuclear WBCs # Fld Polynuclear WBCs % Fluid Mononuclear WBCs Fld Mononuclear WBCs % Fluid Neutrophils Fluid Lymphocytes Fluid Monocytes Fluid Macrophages Fl Pathologist Comment Fluid Glucose Fluid Total Protein Fluid LDH Fluid Comment 2 Miscellaneous Cytology Clinical Impression(s) from Imaging Studies Chest X-Ray 10/02/18 11:50 IMPRESSION: Increasing opacification left hemithorax without other major change from September 13, 2018. Electronically Signed: Matt Newton DO at 12:06 EDT Tel [phone], Service support , Thoracentesis Ultrasound 10/02/18 15:38 IMPRESSION: Successful fluoroscopically guided thoracentesis Electronically Signed: Junior Magaña MD at 8:14 EDT , Service support , Chest X-Ray 10/02/18 16:11 IMPRESSION: No postprocedural pneumothorax Despite removing 1 L of fluid from the left hemithorax, there is only minimal left lung visualized after the thoracentesis. There is near complete opacification of the left hemithorax, a likely combination of persistent effusion, atelectasis and/or infiltrate. Right lung is free of superimposed process Electronically Signed: Junior Magaña MD at 8:16 EDT , Service support , Assessment/Plan All Active Problems (Last Updated 08/26/18 @ 10:08 by Sho Mars) Generalized weakness (Acute) Acute respiratory failure with hypoxia (Acute) Lung mass (Acute) RECOMMENDATIONS: 1. Consider CODE STATUS evaluation with 2. Await oncology recommendations 3. If aggressive, could evaluate for Pleurx catheter 4. Delirium protocol 5. Supplemental oxygen to keep saturations greater than 90% at all times IMPRESSIONS: 1. Acute hypoxic respiratory insufficiency secondary to recurrent left-sided malignant effusion in the setting of squamous cell carcinoma Last thoracentesis was exudative, along with current thoracentesis. Fluid cytology at that time it showed rare atypical epithelioid cells with squamous immunophenotype. Rapid reaccumulation confirms probable malignant pleural effusion. Oncology has been consulted. Consider CODE STATUS evaluation. If patient continues to be aggressive, evaluation as an outpatient for a Pleurx catheter would be appropriate as this is likely to recur quickly. Patient does have some mild hypoxia, but still has significant collapse of the left lower lobe, likely secondary to residual effusion. 2. Acute delirium/metabolic encephalopathy Patient is very delirious at this time. This is a barrier to care as he is not allowing supplemental oxygen. Patient does not have any significant electrolyte abnormalities that require repletion. Address sensory deprivation. Keep lines open and follow delirium protocol. Discussed with nurse. Add supplemental oxygen if agreeable. 3. Advanced age/generalized weakness/low functional capacity/severe protein calorie malnutrition Complicates care, management, recovery and prognosis. Dietitian has been consulted, but given patient's current mental status, it is unclear if he will be able to follow directions or agree with supplementation. Code Visit Inpatient E&M: 37117 Init Hosp L3
--- NOTE | 2018-10-03 08:26 | ONC.CON.INP2 ---
Subjective Chief Complaint: Shortness of Breath/Left Lung Whiteout History of Present Illness: The patient is a 77-year-old male who was referred to Dr. Calderon for symptoms consistent with allergic rhinitis. Patient noticed an increase in rhinorrhea and was referred to Dr. Calderon. Chest x-ray was obtained and it demonstrated a left-sided lung mass. A follow-up CT scan of the neck and chest done at [facility] 08/06/2018 demonstrated an irregularly-shaped hypodense mass in the left lower lobe. It was noted to lie close proximity to the major fissure. There was encasement and narrowing of the lower lobe bronchi. There was a small left pleural effusion. Fluid extended into the major fissure. There were multiple bilateral axillary enlarged lymph nodes present. Dimensions were rendered. There was also an 11 mm hyperdense focus in the left hepatic lobe too small to characterize. There was calcification of the subcarinal lymph node. No hilar adenopathy was noted. The conclusion however said nonspecific pretracheal adenopathy was present. Dimensions of the mass were not rendered. The CT of the neck demonstrated diffuse nonspecific lymph nodes throughout the neck. ? Patient was referred for CT-guided biopsy on 08/29/2018. ? Pathology: MICROSCOPIC DIAGNOSIS Left upper lobe lung mass, CT-guided biopsy: ?Invasive squamous cell carcinoma, poorly differentiated, with necrosis. ?Mucin stain with appropriate control is negative. MRI brain 09/06/2018: no evidence of parenchymal brain or leptomeningeal metastasis. ? PET 09/16/2018: IMPRESSION: 1. ABNORMAL EXAMINATION INDICATIVE OF MALIGNANT VIABLE NEOPLASM. 2. Increased glucose concentration observed in the left mid posterior hemithorax pulmonary parenchyma, left lower lobe, fulfills quantitative criteria or viable neoplasm. 3. Mediastinal hypermetabolic foci fulfill borderline quantitative criteria for viable neoplasm. 4. Facilitated FDG distribution noted in the left hemithorax pleural interface fulfills quantitative criteria for viable pleural metastasis. (Portillo, et al, Chest 122:1918, 2002). 5. Right and left axillary and infraclavicular, as well as bilateral-lateral neck hypermetabolic foci fulfill quantitative criteria for malignant transformation. 6. There is evidence of apparent viable metastatic disease within the abdominal retroperitoneum, bilateral hemipelvis and left inguinal lymph node distributions. At initial consultation, he had endorsed a 10-20 lb weight loss and was having worsening dyspnea at rest and with exertion. No history of hemoptysis. ? Was referred for palliative radiation. Completed 3000 cGy in 10 fractions yesterday. At his follow-up visit he was noted by his radiation oncologist to be more short of breath. He was directed to the emergency room. Chest x-ray suggested worsening left-sided pleural effusion. He underwent thoracentesis yesterday afternoon wherein 1100 cc of fluid was removed. Saw the patient last evening and again this morning. He is less drowsy this morning but confused and not oriented. Nursing reports he is somewhat agitated and cannot tolerate nasal cannula. He saturating 87% on room air. He denies pain. 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) Past Medical/Surgical History: Past Medical History - Most Recent Inpatient Visit Past Medical History Start: 10/02/18 14:28 Text: Status: Complete Freq: Protocol: Document 10/02/18 14:33 [facility] (Rec: 10/02/18 14:39 [facility] [id number]) BMI Required to complete PMH What is Patient's BMI 20.9 Past Medical History Unable History Recalled No Query Text:Pt Unable/Family Not Present Neurologic Medical History Hx Dementia/Alzheimer's No Hx Parkinson's Disease No Hx Seizures No Hx Multiple Sclerosis No Hx Migraines No Cardiac Medical History VTE Present on Admission No Hx of Deep Vein Thrombosis/VTE/PE No Hx Hypertension No Hx Chest Pain/Angina No Hx Heart Attack No Hx Cardiac Surgery/Stents/Etc. No Hx Heart Failure No Hx Pacemaker/AICD No Hx Irregular Heartbeat and/or Afib No Hx Anticoagulant Therapy Yes: ASPIRIN Query Text:(Coumadin, Aspirin, Plavix, Xarelto, etc.) Hx Pain in Legs when Walking/Leg Cramps Yes Respiratory Medical History Hx COPD No: LUNG CANCER Hx Emphysema No Hx Smoking Yes: QUIT 50 YEARS AGO Smoking Status Former smoker Hx Tobacco Use in last 12 months No Hx Sleep Apnea No Do you snore loudly (louder than talking No or can be heard through closed doors)? Do you often feel tired/ fatigued/ Yes sleepy during daytime? Has anyone observed you stop breathing No during sleep? STOP Results Negative GI Medical History Hx Unplanned Weight Loss Yes Genitourinary Medical History Indwelling Catheter in Place on Arrival/ No Admission Hx Renal Disease No Hx Dialysis No Musculoskeletal History Hx Arthritis No Hx Rheumatoid Arthritis No Endocrine Medical History Hx Diabetes No Hx Thyroid Disease No Hematologic Medical History Hx of Blood Transfusion No Hx of Transfusion in last 3 Months No Ever experience any problems with No transfusion(s)? Hx of Preganancy in last 3 Months N/A Nurse Filling Out Transfusion & SGESSEL Questions: Date: 10/02/18 Time: 14:38 Psycho/Social Medical History Hx Depression No Hx Anxiety No Hx Behavior Disorder No Hx Alcohol Use No Hx Substance Use No Other Medical History Hx Blood Disorders No Hx Anemia No Hx Cancer Yes: LUNG CA, RADIATION Hx Drug Resistant Organism No Wound/Pressure Injury Present on Arrival No: TO BE ASSESSED PER PRIMARY /Admission RN Query Text:If yes, chart assessment in Shift/Clinical Findings Central Line/PICC/VAD Present on Arrival No /Admission Antibiotics within last 7 days? No Risk for Readmission Number of Risk Factors 3 At Risk for Readmission Patient is At Risk For Readmission Patient is eligible for Call Back Y Past Medical History (Last Updated 08/26/18 @ 10:08 by Sho Mars) History of pneumonia (Acute) Localized swelling, mass or lump of neck (Acute) Other nonspecific abnormal finding of lung field (Acute) Paternal Family History: Family History (Last Updated 08/26/18 @ 10:03 by Sho Mars) Brother Throat cancer Father Heart disease Emphysema of lung Mother Diabetes - Social History Smoking Status: Former smoker Allergies/Adverse Reactions: Allergy/AdvReac Type Severity Reaction Status Date / Time No Known Allergies Allergy Verified 10/02/18 10:27 Vital Signs Height 1.8 m Weight: 64.2 kg Weight in Pounds 141.5 lbs Pulse Ox 87 Temperature 97.5 F Pulse Rate [3] 96 Pulse Rate [2] 96 Pulse Rate [1 (Initial 96 Baseline)] Pulse Rate 84 Respiratory Rate [3] 30 Respiratory Rate [2] 28 Respiratory Rate [1 (Initial 28 Baseline)] Respiratory Rate 22 Blood Pressure [BP] 121/71 Blood Pressure [3] 116/89 Blood Pressure [2] 125/64 Blood Pressure [1 (Initial 121/72 Baseline)] Blood Pressure 106/63 Blood Pressure Position [BP] Semi-Fowlers Blood Pressure Position Semi-Fowlers - Physical Exam General: - - Confused but cooperative. Cardiac:: Regular rhythm Lungs: - - Decreased right sided breath sounds with passive respirations. None on left. Abdomen:: Soft Extremities:: - - No swelling or edema. Laboratory Data: Laboratory Tests 10/03/18 10/03/18 10/02/18 Range/Units 05:25 05:25 16:10 WBC 32.2 H* (4.4-11.0) K/mm3 RBC 3.19 L (4.6-6.2) M/mm3 Hgb 9.3 L (13.0-16.5) g/dL Hct 29.0 L (40-54) % MCV 90.9 (80-94) fL MCH 29.2 (27.0-32.0) pg MCHC 32.1 (32-36) g/dL RDW Std Deviation 47.1 H (35.1-43.9) fl RDW Coeff of Mckenzie 14.4 (11.6-14.6) % Plt Count 232 (150-450) K/mm3 MPV 10.5 (6.2-12.0) fl Immature Gran % (Auto) 0.300 (0.0-0.9) % Neut % (Auto) 15.7 L (47-70) % Lymph % (Auto) 75.4 H (19-41) % Christian % (Auto) 8.1 (0-10) % Eos % (Auto) 0.3 (0-5) % Baso % (Auto) 0.2 (0-1) % Absolute Neuts (auto) Not Reportable Absolute Nucleated RBC 0.00 (0-5) 10^3/uL Nucleated RBC % 0 (0-5) % Differential Comment COMMENT Diff Path Review May foll Atypical Lymphocytes % Smudge Cells PT (11.7-14.9) SECONDS INR APTT (24.1-36.2) Seconds Sodium 144 (136-145) mmol/L Potassium 4.2 (3.5-5.1) mmol/L Chloride 108 H (98-107) mmol/L Carbon Dioxide 30.0 (21.0-32.0) mmol/L Anion Gap 6 (5-15) BUN 25 H (7-18) mg/dL Creatinine 0.74 (0.70-1.30) mg/dL Estim Creat Clear Calc 53.50 ml/min Est GFR (MDRD) Af Amer 131 (>60) mL/min Est GFR (MDRD) Non-Af 108 (>60) mL/min BUN/Creatinine Ratio 33.7 H (10-20) RATIO Glucose 79 (74-106) mg/dL Calcium 9.1 (8.5-10.1) mg/dL Lactate Dehydrogenase (87-241) U/L Total Protein (6.4-8.2) g/dL Globulin (2.2-4.2) g/dL Albumin/Globulin Ratio (0.9-2.4) RATIO Urine Color (Yellow) Urine Clarity (Clear) Urine pH (5.0 - 8.0) Ur Specific [place] (1.002-1.030) Urine Protein (Negative) mg/dl Urine Glucose (UA) (Normal) mg/dl Urine Ketones (Negative) mg/dl Urine Occult Blood (Negative) /ul Urine Nitrite (Negative) Urine Bilirubin (Negative) mg/dL Urine Urobilinogen (Normal) mg/dl Ur Leukocyte Esterase (Negative) /ul Urine RBC (0-5) /hpf Urine WBC (0-5) /hpf Ur Squamous Epith Cells (0-5) /hpf Amorphous Sediment Urine Bacteria (None Seen) /hpf Urine Mucus (<or=2+) /hpf Fluid Source THORACENTESIS Fluid Color RED Fluid Appearance CLOUDY Fluid WBC 0.698 10^3/uL Fluid RBC 0.047 10^6/ul Fluid Tot Cell Count 0.713 10^3/ul Fld Polynuclear WBCs # 0.037 10^3/uL Fld Polynuclear WBCs % 5.3 % Fluid Mononuclear WBCs 0.661 10^3/uL Fld Mononuclear WBCs % 94.7 % Fluid Neutrophils 4 % Fluid Lymphocytes 79 % Fluid Monocytes 13 % Fluid Macrophages 4 % Fl Pathologist Comment May follow Fluid Glucose (40-70) mg/dL Fluid Total Protein (Not Establ.) g/dL Fluid LDH (Not Establ.) Units/l Fluid Comment 2 SEE COMMENT 10/02/18 10/02/18 10/02/18 Range/Units 16:10 16:10 12:56 WBC (4.4-11.0) K/mm3 RBC (4.6-6.2) M/mm3 Hgb (13.0-16.5) g/dL Hct (40-54) % MCV (80-94) fL MCH (27.0-32.0) pg MCHC (32-36) g/dL RDW Std Deviation (35.1-43.9) fl RDW Coeff of Mckenzie (11.6-14.6) % Plt Count (150-450) K/mm3 MPV (6.2-12.0) fl Immature Gran % (Auto) (0.0-0.9) % Neut % (Auto) (47-70) % Lymph % (Auto) (19-41) % Christian % (Auto) (0-10) % Eos % (Auto) (0-5) % Baso % (Auto) (0-1) % Absolute Neuts (auto) Absolute Nucleated RBC (0-5) 10^3/uL Nucleated RBC % (0-5) % Differential Comment Diff Path Review Atypical Lymphocytes % Smudge Cells PT (11.7-14.9) SECONDS INR APTT (24.1-36.2) Seconds Sodium (136-145) mmol/L Potassium (3.5-5.1) mmol/L Chloride (98-107) mmol/L Carbon Dioxide (21.0-32.0) mmol/L Anion Gap (5-15) BUN (7-18) mg/dL Creatinine (0.70-1.30) mg/dL Estim Creat Clear Calc ml/min Est GFR (MDRD) Af Amer (>60) mL/min Est GFR (MDRD) Non-Af (>60) mL/min BUN/Creatinine Ratio (10-20) RATIO Glucose (74-106) mg/dL Calcium (8.5-10.1) mg/dL Lactate Dehydrogenase (87-241) U/L Total Protein (6.4-8.2) g/dL Globulin (2.2-4.2) g/dL Albumin/Globulin Ratio (0.9-2.4) RATIO Urine Color Yellow (Yellow) Urine Clarity Sl. Cloudy (Clear) Urine pH 7.0 (5.0 - 8.0) Ur Specific [place] 1.010 (1.002-1.030) Urine Protein 15 H (Negative) mg/dl Urine Glucose (UA) Normal (Normal) mg/dl Urine Ketones Negative (Negative) mg/dl Urine Occult Blood 10 H (Negative) /ul Urine Nitrite Negative (Negative) Urine Bilirubin Negative (Negative) mg/dL Urine Urobilinogen 4 H (Normal) mg/dl Ur Leukocyte Esterase Negative (Negative) /ul Urine RBC 0 SEEN (0-5) /hpf Urine WBC 0 SEEN (0-5) /hpf Ur Squamous Epith Cells 0-5 SEEN (0-5) /hpf Amorphous Sediment 2+ Urine Bacteria 0 SEEN (None Seen) /hpf Urine Mucus 0 SEEN (<or=2+) /hpf Fluid Source Fluid Color Fluid Appearance Fluid WBC 10^3/uL Fluid RBC 10^6/ul Fluid Tot Cell Count 10^3/ul Fld Polynuclear WBCs # 10^3/uL Fld Polynuclear WBCs % % Fluid Mononuclear WBCs 10^3/uL Fld Mononuclear WBCs % % Fluid Neutrophils % Fluid Lymphocytes % Fluid Monocytes % Fluid Macrophages % Fl Pathologist Comment Fluid Glucose 67 (40-70) mg/dL Fluid Total Protein 4.7 (Not Establ.) g/dL Fluid LDH 226 (Not Establ.) Units/l Fluid Comment 2 10/02/18 10/02/18 10/02/18 Range/Units 11:28 11:28 11:28 WBC (4.4-11.0) K/mm3 RBC (4.6-6.2) M/mm3 Hgb (13.0-16.5) g/dL Hct (40-54) % MCV (80-94) fL MCH (27.0-32.0) pg MCHC (32-36) g/dL RDW Std Deviation (35.1-43.9) fl RDW Coeff of Mckenzie (11.6-14.6) % Plt Count (150-450) K/mm3 MPV (6.2-12.0) fl Immature Gran % (Auto) (0.0-0.9) % Neut % (Auto) (47-70) % Lymph % (Auto) (19-41) % Christian % (Auto) (0-10) % Eos % (Auto) (0-5) % Baso % (Auto) (0-1) % Absolute Neuts (auto) Absolute Nucleated RBC (0-5) 10^3/uL Nucleated RBC % (0-5) % Differential Comment Diff Path Review Atypical Lymphocytes % Smudge Cells PT 15.8 H (11.7-14.9) SECONDS INR 1.3 APTT 37.7 H (24.1-36.2) Seconds Sodium 138 (136-145) mmol/L Potassium 4.2 (3.5-5.1) mmol/L Chloride 102 (98-107) mmol/L Carbon Dioxide 33.0 H (21.0-32.0) mmol/L Anion Gap 3 L (5-15) BUN 29 H (7-18) mg/dL Creatinine 0.95 (0.70-1.30) mg/dL Estim Creat Clear Calc 59.68 ml/min Est GFR (MDRD) Af Amer 98 (>60) mL/min Est GFR (MDRD) Non-Af 81 (>60) mL/min BUN/Creatinine Ratio 30.5 H (10-20) RATIO Glucose 96 (74-106) mg/dL Calcium 9.9 (8.5-10.1) mg/dL Lactate Dehydrogenase 202 (87-241) U/L Total Protein 8.8 H (6.4-8.2) g/dL Globulin 6.4 H (2.2-4.2) g/dL Albumin/Globulin Ratio 0.4 L (0.9-2.4) RATIO Urine Color (Yellow) Urine Clarity (Clear) Urine pH (5.0 - 8.0) Ur Specific [place] (1.002-1.030) Urine Protein (Negative) mg/dl Urine Glucose (UA) (Normal) mg/dl Urine Ketones (Negative) mg/dl Urine Occult Blood (Negative) /ul Urine Nitrite (Negative) Urine Bilirubin (Negative) mg/dL Urine Urobilinogen (Normal) mg/dl Ur Leukocyte Esterase (Negative) /ul Urine RBC (0-5) /hpf Urine WBC (0-5) /hpf Ur Squamous Epith Cells (0-5) /hpf Amorphous Sediment Urine Bacteria (None Seen) /hpf Urine Mucus (<or=2+) /hpf Fluid Source Fluid Color Fluid Appearance Fluid WBC 10^3/uL Fluid RBC 10^6/ul Fluid Tot Cell Count 10^3/ul Fld Polynuclear WBCs # 10^3/uL Fld Polynuclear WBCs % % Fluid Mononuclear WBCs 10^3/uL Fld Mononuclear WBCs % % Fluid Neutrophils % Fluid Lymphocytes % Fluid Monocytes % Fluid Macrophages % Fl Pathologist Comment Fluid Glucose (40-70) mg/dL Fluid Total Protein (Not Establ.) g/dL Fluid LDH (Not Establ.) Units/l Fluid Comment 2 10/02/18 Range/Units 11:28 WBC 38.5 H* (4.4-11.0) K/mm3 RBC 3.62 L (4.6-6.2) M/mm3 Hgb 10.5 L (13.0-16.5) g/dL Hct 32.1 L (40-54) % MCV 88.7 (80-94) fL MCH 29.0 (27.0-32.0) pg MCHC 32.7 (32-36) g/dL RDW Std Deviation 45.3 H (35.1-43.9) fl RDW Coeff of Mckenzie 14.2 (11.6-14.6) % Plt Count 271 (150-450) K/mm3 MPV 10.1 (6.2-12.0) fl Immature Gran % (Auto) 0.300 (0.0-0.9) % Neut % (Auto) 13.8 L (47-70) % Lymph % (Auto) 78.7 H (19-41) % Christian % (Auto) 6.9 (0-10) % Eos % (Auto) 0.1 (0-5) % Baso % (Auto) 0.2 (0-1) % Absolute Neuts (auto) Not Reportable Absolute Nucleated RBC 0.00 (0-5) 10^3/uL Nucleated RBC % 0 (0-5) % Differential Comment Diff Path Review May foll Atypical Lymphocytes 3+ % Smudge Cells RARE PT (11.7-14.9) SECONDS INR APTT (24.1-36.2) Seconds Sodium (136-145) mmol/L Potassium (3.5-5.1) mmol/L Chloride (98-107) mmol/L Carbon Dioxide (21.0-32.0) mmol/L Anion Gap (5-15) BUN (7-18) mg/dL Creatinine (0.70-1.30) mg/dL Estim Creat Clear Calc ml/min Est GFR (MDRD) Af Amer (>60) mL/min Est GFR (MDRD) Non-Af (>60) mL/min BUN/Creatinine Ratio (10-20) RATIO Glucose (74-106) mg/dL Calcium (8.5-10.1) mg/dL Lactate Dehydrogenase (87-241) U/L Total Protein (6.4-8.2) g/dL Globulin (2.2-4.2) g/dL Albumin/Globulin Ratio (0.9-2.4) RATIO Urine Color (Yellow) Urine Clarity (Clear) Urine pH (5.0 - 8.0) Ur Specific [place] (1.002-1.030) Urine Protein (Negative) mg/dl Urine Glucose (UA) (Normal) mg/dl Urine Ketones (Negative) mg/dl Urine Occult Blood (Negative) /ul Urine Nitrite (Negative) Urine Bilirubin (Negative) mg/dL Urine Urobilinogen (Normal) mg/dl Ur Leukocyte Esterase (Negative) /ul Urine RBC (0-5) /hpf Urine WBC (0-5) /hpf Ur Squamous Epith Cells (0-5) /hpf Amorphous Sediment Urine Bacteria (None Seen) /hpf Urine Mucus (<or=2+) /hpf Fluid Source Fluid Color Fluid Appearance Fluid WBC 10^3/uL Fluid RBC 10^6/ul Fluid Tot Cell Count 10^3/ul Fld Polynuclear WBCs # 10^3/uL Fld Polynuclear WBCs % % Fluid Mononuclear WBCs 10^3/uL Fld Mononuclear WBCs % % Fluid Neutrophils % Fluid Lymphocytes % Fluid Monocytes % Fluid Macrophages % Fl Pathologist Comment Fluid Glucose (40-70) mg/dL Fluid Total Protein (Not Establ.) g/dL Fluid LDH (Not Establ.) Units/l Fluid Comment 2 Diagnostic Data: Diagnostic Data Thoracentesis Ultrasound 10/02/18 15:38 IMPRESSION: Successful fluoroscopically guided thoracentesis Electronically Signed: Junior Magaña MD at 8:14 EDT , Service support , Chest X-Ray 10/02/18 16:11 IMPRESSION: No postprocedural pneumothorax Despite removing 1 L of fluid from the left hemithorax, there is only minimal left lung visualized after the thoracentesis. There is near complete opacification of the left hemithorax, a likely combination of persistent effusion, atelectasis and/or infiltrate. Right lung is free of superimposed process Electronically Signed: Junior Magaña MD at 8:16 EDT , Service support , Assessment and Plan 1) Metastatic non-small cell lung cancer. Assessment: -In summary the patient is an 78-year-old male who was recently diagnosed with a squamous cell carcinoma the left lung. Suprahilar left-sided tumor causing airway compromise as well as malignant pleural effusion. He has developed delirium that may be related to hypoxemia. -His performance status is poor and overall prognosis is grim. I talked with his this morning. Explained to her that systemic therapy is not indicated and I recommended hospice care. She would like to have him at home if possible. Plan: -Consult hospice. Discussed with Dr. Willard. Medications: Prescriptions This Visit Medication Instructions Recorded Aspirin [Aspirin, Baby] 81 mg PO DAILY@0800 10/02/18 Medications Added to Medication List This Visit Category Date Time Status Aspirin [Aspirin, Baby] Med 10/03/18 08:00 Active 81 mg PO DAILY@0800 Primary Care Provider: No Primary Care Phys Referring Provider:
--- NOTE | 2018-10-03 09:20 | CASEMGMT ---
Dr Pierre's note indicates he spoke with patient's and a Hospice referral needs to be made. SW attempted to call patient's to verify and let her know how the process works. However, she did not answer so SW left a voice mail. Zuleika MCCOY PLATE SENSITIZER
[2018-10-03] MEDS: Enoxaparin 40 MG/0.4 ML Syringe SC (11:08)
[2018-10-03] MEDS: Aspirin 81 MG TAB.CHEW PO (11:08)
--- NOTE | 2018-10-03 11:15 | DCINST_ITS ---
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) Generalized weakness (Acute) Acute respiratory failure with hypoxia (Acute) You will use the following diet at home:: No restrictions Your food should be the consistency of: Regular Your liquids should be the consistency of: Regular/Thin Discharge Activity: Return to Normal Activity Allergies/Adverse Reactions: Allergies No Known Allergies Allergy (Verified 10/02/18 10:27) Medications to take at Discharge Aspirin [Aspirin, Baby] 81 mg PO DAILY@0800 10/02/18 Primary Care Physician: Care Physician,No Primary [Primary Care Provider] - Please follow up with your Primary Care Physician in: as directed Test Results: Test results from this visit will be discussed in further detail at your follow- up appointment, if applicable. Proposed Discharge Date: 10/03/18
--- NOTE | 2018-10-03 12:49 | CASEMGMT ---
Patient's and a family friend came to [facility]. Physician, PA, RN, and SW went to room and spoke with patient and his . Patient's disease and prognosis were discussed. The agreed to talking with Hospice. SW stayed behind and provided emotional support. SW explained how the referral process works. Patient's was okay with SW arranging a time and then letting her know. She just does not want to drive when it is dark. SW called Hospice with referral. They will be able to come to [facility] today at 3p. SW faxed information. MORRIS notified patient, his , RN, and elevator worker that Hospice will be here at 3p. Zuleika MCCOY MSW
[2018-10-03 13:43] LABS: Pathologist Comment/Body Fluid Reviewed
[2018-10-03 13:46] LABS: Pathologist Review Reviewed
[2018-10-03 13:57] LABS: Pathologist Review Reviewed
--- NOTE | 2018-10-03 14:23 | DS.PCM_ITS ---
<Oj Lieberman - Last Filed: 10/03/18 14:23> Discharge Date and Diagnosis - Problem List Patient Problems: Active and Suspected Problems (Last Updated 08/26/18 @ 10:08 by Sho Mars) Generalized weakness (Acute) Acute respiratory failure with hypoxia (Acute) Date of Admission: 10/02/18 Date of Discharge: 10/03/18 - Primary Discharge Diagnosis Active and Suspected Problems (Last Updated 08/26/18 @ 10:08 by Sho Mars) Acute respiratory failure with hypoxia (Acute) 2/2 recurrent malignant pleural effusion Stage IV squamous cell lung cancer - Secondary Discharge Diagnosis Chronic Problems (Last Updated 08/26/18 @ 10:08 by Sho Mars) 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 US/Thoracentesis W US IMPRESSION: Successful fluoroscopically guided thoracentesis >1000 out RAD/Chest 1 View IMPRESSION: No postprocedural pneumothorax Despite removing 1 L of fluid from the left hemithorax, there is only minimal left lung visualized after the thoracentesis. There is near complete opacification of the left hemithorax, a likely combination of persistent effusion, atelectasis and/or infiltrate. Right lung is free of superimposed process Consultations: Oncology-Gabby Pulmonology-Richie Operations: None Procedures: Thoracentesis Summary of Care Provided: Hospital Course: The patient is a 78 year old M with past medical history of stage IV squamous cell lung cancer with prior pleural effusions requiring thoracentesis, patient of Dr. Pierre, who presented to the emergency room with increased shortness of breath. Chest x-ray revealed significant pleural effusion with whiteout of the left lung. He also had a leukocytosis of 38,000. He was admitted to the PCU and placed on telemetry. Pulmonary medicine and oncology were consulted. He was 89% on room air initially but stabilized with 2 L of oxygen. He underwent a thoracentesis and over 1 L of fluid was removed. Chest x-ray did not significantly change however. Oncology felt the patient was appropriate for hospice and then no further malignancy oriented palliative therapies were indicated. A hospice referral was made. The family desired to go home with hospice. He was able to be weaned off oxygen. He does have interest in having a Pleurx catheter for palliative treatment of his recurrent pleural effusions. Dr. Ruby agreed to see the patient as an outpatient on Sunday for probable probable Pleurx catheter placement. The patient was discharged home with hospice in guarded condition. He will follow-up with general surgery on September 28, he may follow-up with pulmonology if needed in 1 week. Prognosis is very poor. This patient was seen by Oj Lieberman PA-C under the supervision of Doctor Cintron. [] Patient Problems: Active and Suspected Problems (Last Updated 08/26/18 @ 10:08 by Sho Mars) Generalized weakness (Acute) Acute respiratory failure with hypoxia (Acute) - Physical Exam General: Alert, Cooperative, - - cachectic HEENT: Atraumatic, PERRLA, EOMI, Normocephalic Neck: Supple, No JVD, Negative Carotid Bruits Lungs: Diminished Cardiovascular: Regular rate, No murmurs Abdomen: Bowel Sounds Present, Soft, Non Tender Extremities: No edema, Capillary Refill Less than 3 Seconds Skin: No rashes, No breakdown Musculoskeletal: No Tenderness to Palpation of Joints or Extremities Neurological: Cranial nerves II-XII grossly intact Psych/Mental Status: Anxious, Depressed Vital Signs Temp Pulse Resp BP Pulse Ox 98.5 F 88 20 H 105/65 95 10/03/18 08:35 10/03/18 11:30 10/03/18 08:35 10/03/18 08:35 10/03/18 08:35 Oxygen Flow Rate (L/min) [3] 6 Oxygen Flow Rate (L/min) [2] 6 Oxygen Flow Rate (L/min) [1 ( 6 Initial Baseline)] Oxygen Flow Rate (L/min) 4 Oxygen Delivery Method [3] Nasal Cannula Oxygen Delivery Method [2] Nasal Cannula Oxygen Delivery Method [1 ( Nasal Cannula Initial Baseline)] Oxygen Delivery Method Room Air Weight: 141 lb 8.588 oz Body Mass Index (BMI) 19.8 Intake and Output for Last 24 Hours 10/01/18 10/02/18 10/03/18 23:59 23:59 23:59 Intake Total 759.4 / 759.4 180 / 180 Output Total 150 / 150 Balance 759.4 / 759.4 Microbiology Past 72 Hours 10/02/18 16:10 Gram Stain - Final Fluid - Thoracentesis Fluid Body Fluid Culture - Preliminary No growth-Final to follow Laboratory Tests Past 24 Hrs 10/02/18 10/02/18 10/02/18 11:28 11:28 11:28 WBC RBC Hgb Hct MCV MCH MCHC RDW Std Deviation RDW Coeff of Mckenzie Plt Count MPV Immature Gran % (Auto) Neut % (Auto) Lymph % (Auto) [place] % (Auto) Eos % (Auto) Baso % (Auto) Absolute Neuts (auto) Absolute Nucleated RBC Nucleated RBC % Differential Comment Diff Path Review Reviewed PT 15.8 H INR 1.3 APTT 37.7 H Sodium Potassium Chloride Carbon Dioxide Anion Gap BUN Creatinine Estim Creat Clear Calc Est GFR (MDRD) Af Amer Est GFR (MDRD) Non-Af BUN/Creatinine Ratio Glucose Calcium Lactate Dehydrogenase 202 Total Protein 8.8 H Globulin 6.4 H Albumin/Globulin Ratio 0.4 L Fluid Source Fluid Color Fluid Appearance Fluid WBC Fluid RBC Fluid Tot Cell Count Fld Polynuclear WBCs # Fld Polynuclear WBCs % Fluid Mononuclear WBCs Fld Mononuclear WBCs % Fluid Neutrophils Fluid Lymphocytes Fluid Monocytes Fluid Macrophages Fl Pathologist Comment Fluid Glucose Fluid Total Protein Fluid LDH Fluid Comment 2 Miscellaneous Cytology 10/02/18 10/02/18 10/02/18 16:10 16:10 16:10 WBC RBC Hgb Hct MCV MCH MCHC RDW Std Deviation RDW Coeff of Mckenzie Plt Count MPV Immature Gran % (Auto) Neut % (Auto) Lymph % (Auto) [place] % (Auto) Eos % (Auto) Baso % (Auto) Absolute Neuts (auto) Absolute Nucleated RBC Nucleated RBC % Differential Comment Diff Path Review PT INR APTT Sodium Potassium Chloride Carbon Dioxide Anion Gap BUN Creatinine Estim Creat Clear Calc Est GFR (MDRD) Af Amer Est GFR (MDRD) Non-Af BUN/Creatinine Ratio Glucose Calcium Lactate Dehydrogenase Total Protein Globulin Albumin/Globulin Ratio Fluid Source THORACENTESIS Fluid Color RED Fluid Appearance CLOUDY Fluid WBC 0.698 Fluid RBC 0.047 Fluid Tot Cell Count 0.713 Fld Polynuclear WBCs # 0.037 Fld Polynuclear WBCs % 5.3 Fluid Mononuclear WBCs 0.661 Fld Mononuclear WBCs % 94.7 Fluid Neutrophils 4 Fluid Lymphocytes 79 Fluid Monocytes 13 Fluid Macrophages 4 Fl Pathologist Comment Reviewed Fluid Glucose 67 Fluid Total Protein 4.7 Fluid LDH 226 Fluid Comment 2 SEE COMMENT Miscellaneous Cytology 10/02/18 10/03/18 10/03/18 16:10 05:25 05:25 WBC 32.2 H* RBC 3.19 L Hgb 9.3 L Hct 29.0 L MCV 90.9 MCH 29.2 MCHC 32.1 RDW Std Deviation 47.1 H RDW Coeff of Mckenzie 14.4 Plt Count 232 MPV 10.5 Immature Gran % (Auto) 0.300 Neut % (Auto) 15.7 L Lymph % (Auto) 75.4 H [place] % (Auto) 8.1 Eos % (Auto) 0.3 Baso % (Auto) 0.2 Absolute Neuts (auto) Not Reportable Absolute Nucleated RBC 0.00 Nucleated RBC % 0 Differential Comment COMMENT Diff Path Review Reviewed PT INR APTT Sodium 144 Potassium 4.2 Chloride 108 H Carbon Dioxide 30.0 Anion Gap 6 BUN 25 H Creatinine 0.74 Estim Creat Clear Calc 53.50 Est GFR (MDRD) Af Amer 131 Est GFR (MDRD) Non-Af 108 BUN/Creatinine Ratio 33.7 H Glucose 79 Calcium 9.1 Lactate Dehydrogenase Total Protein Globulin Albumin/Globulin Ratio Fluid Source Fluid Color Fluid Appearance Fluid WBC Fluid RBC Fluid Tot Cell Count Fld Polynuclear WBCs # Fld Polynuclear WBCs % Fluid Mononuclear WBCs Fld Mononuclear WBCs % Fluid Neutrophils Fluid Lymphocytes Fluid Monocytes Fluid Macrophages Fl Pathologist Comment Fluid Glucose Fluid Total Protein Fluid LDH Fluid Comment 2 Miscellaneous Cytology Pending Discharge Diet: No Restrictions Discharge Activity: Return to Normal Activity Primary Care Physician: Care Physician,No Primary [Primary Care Provider] - Please follow up with your Primary Care Physician in: as directed Please Follow Up With: Rito Ruby MD When: 10/03/2018 Please Follow Up With: Alex Quiroz MD When: 1 week Disposition: Home with Hospice Minutes spent on discharge:: 35 Patient Condition:: Stable Medical Necessity - Tobacco Use Smoking Status: Former smoker Meaningful Use Info Meaningful Use Diagnoses (Choose all that apply): None applicable <Paintsil,Pride - Last Filed: 10/04/18 15:21> Discharge Date and Diagnosis - Primary Discharge Diagnosis Active and Suspected Problems (Last Updated 08/26/18 @ 10:08 by Sho Mars) Generalized weakness (Acute) Acute respiratory failure with hypoxia (Acute) Malignant pleural effusion Acute urinary retention Delirium secondary to hypoxia - Secondary Discharge Diagnosis Chronic Problems (Last Updated 08/26/18 @ 10:08 by Sho Mars) 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 I have independently interviewed and examined the patient and reviewed pertinent historical, laboratory, and other data. Please refer to KELSEY Morton note for his patient's presentation, findings, and recommendations. I have reviewed and his note and concur with his documentation 78-year-old male with diagnosis of left squamous cell lung CA with pleural effusion, status post radiation therapy who comes in with progressive shortness of breath and found to have malignant pleural effusion. Patient underwent US guided thoracocentesis on the day of admission with 1 L fluid removed. Patient was admitted to the telemetry bed. Oncology and binder operator were consulted. Patient was felt to be a candidate for hospice. Discussed with the who agreed. Patient's CODE STATUS was also made DNR CCA. Patient initially was going to go home with home hospice but was progressively short of breath. The initial plan was outpatient Pleurx catheter placement. This however had to be done inpatient by Dr. Briones because of patient's hypoxia. Patient was confused throughout his stay. Discussed with the hospice team, patient will be discharged to the inpatient hospice facility. His and his children at the bedside, agree with the plan of care. On the day of discharge, patient went into urinary retention, Flood catheter was placed. He complained of pain at the site of the Flood. Physical Exam: Gen: cachetic, looks in some discomfort, not pale, not jaundiced CVS:HS I +II, regular, no murmurs RESP: Diminished GI: BS present and normal, soft, nontender, no palpable organs EXT:No edema ASSESSMENT: 1. Acute hypoxic respiratory failure 2. Recurrent malignant pleural effusion status post thoracocentesis on 10/02/18, s/p pleur 3. Stage IV squamous cell CA of the lung 4. Severe protein calorie malnutrition 5. Code status - DNR-CCA - Physical Exam Vital Signs Temp Pulse Resp BP Pulse Ox 98.3 F 82 20 H 106/53 L 95 10/04/18 12:40 10/04/18 12:40 10/04/18 12:40 10/04/18 12:40 10/04/18 12:40 Oxygen Flow Rate (L/min) [3] 6 Oxygen Flow Rate (L/min) [2] 6 Oxygen Flow Rate (L/min) [1 ( 6 Initial Baseline)] Oxygen Flow Rate (L/min) 2 Oxygen Delivery Method [3] Nasal Cannula Oxygen Delivery Method [2] Nasal Cannula Oxygen Delivery Method [1 ( Nasal Cannula Initial Baseline)] Oxygen Delivery Method Nasal Cannula Weight: 62.6 kg Body Mass Index (BMI) 19.3 Intake and Output for Last 24 Hours 10/02/18 10/03/18 10/04/18 23:59 23:59 23:59 Intake Total 759.4 / 759.4 430 / 430 170 / 170 Output Total 1250 / 1250 450 / 450 Balance 759.4 / 759.4 -820 / -820 -280 / -280 Microbiology Past 72 Hours 10/02/18 16:10 Gram Stain - Final Fluid - Thoracentesis Fluid Body Fluid Culture - Preliminary No growth-Final to follow Anaerobic Culture - Preliminary No growth in 48 hours. Laboratory Tests Past 24 Hrs 10/04/18 10:16 PT 16.5 H INR 1.4 APTT 36.5 H Code Visit Inpatient E&M: 65570 Subs Hosp L2
--- NOTE | 2018-10-03 15:08 | PCM.CONS.GEN ---
Reason for Consult Date of Consultation: 10/03/18 Reason for Consultation: PleurX placement History of Present Illness: The patient is a 78 year old M I am seeing for surgical consultation in conjunction with Dr. Rito Ruby. Patient recently diagnosed with invasive squamous cell lung cancer and follows with Dr. Pierre. Patient was sent to the emergency department from [facility] radiation on 10/02/18 for complaints of increasing weakness. Patient noted to be short of breath in the emergency department and was hypoxic, 89% on room air. Chest x-ray in the emergency department demonstrated increased opacification of the left lung, patient had previously had thoracentesis on 09/12/18 for pleural effusion. Patient was admitted to PCU and underwent ultrasound-guided thoracentesis on 10/02/18 with 1120 cc of fluid removed. Repeat imaging after procedure still showed opacification of the left hemithorax. General surgery was consulted for evaluation for PleurX catheter placement. 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) Medical History: Medical History (Last Updated 08/26/18 @ 10:08 by Sho Mars) History of pneumonia Z87.01 Localized swelling, mass or lump of neck R22.1 Other nonspecific abnormal finding of lung field R91.8 Allergies No Known Allergies Allergy (Verified 10/02/18 10:27) Home Medications: Ambulatory Orders Medication Instructions Recorded Aspirin [Aspirin, Baby] 81 mg PO DAILY@0800 10/02/18 Smoking Status: Former smoker - *Family History Paternal Family History: Family History (Last Updated 08/26/18 @ 10:03 by Sho Mars) Brother Throat cancer Father Heart disease Emphysema of lung Mother Diabetes Review of Systems Constitutional: Reports: Weakness, Fatigue Eyes: Denies: Vision Change HEENT: Denies: Difficulty Swallowing Cardiovascular: Denies: Chest Pain, Chest Pressure, Edema Respiratory: Reports: Shortness of Breath, Shortness of breath at rest. Denies: Cough, Sputum production Gastrointestinal: Denies: Abdominal Pain Skin: Denies: Skin Changes Hematologic/ Lymphatic: Denies: Hx of blood clot Patient Problems: Active and Suspected Problems (Last Updated 08/26/18 @ 10:08 by Sho Mars) Generalized weakness (Acute) Acute respiratory failure with hypoxia (Acute) - Physical Exam General: Alert, No apparent distress HEENT: Atraumatic, PERRLA Neck: Supple Lungs: Diminished - bilaterally, left greater than right Cardiovascular: Regular rate, Regular Rhythm Abdomen: Bowel Sounds Present Extremities: No clubbing, No cyanosis, No edema Skin: No rashes, No breakdown Vital Signs Temp Pulse Resp BP Pulse Ox 98.5 F 88 20 H 105/65 95 10/03/18 08:35 10/03/18 11:30 10/03/18 08:35 10/03/18 08:35 10/03/18 08:35 Oxygen Flow Rate (L/min) [3] 6 Oxygen Flow Rate (L/min) [2] 6 Oxygen Flow Rate (L/min) [1 ( 6 Initial Baseline)] Oxygen Flow Rate (L/min) 4 Oxygen Delivery Method [3] Nasal Cannula Oxygen Delivery Method [2] Nasal Cannula Oxygen Delivery Method [1 ( Nasal Cannula Initial Baseline)] Oxygen Delivery Method Room Air Weight: 141 lb 8.588 oz Body Mass Index (BMI) 19.8 Intake and Output for Last 24 Hours 10/01/18 10/02/18 10/03/18 23:59 23:59 23:59 Intake Total 759.4 / 759.4 180 / 180 Output Total 150 / 150 Balance 759.4 / 759.4 30 / Microbiology Past 72 Hours 10/02/18 16:10 Gram Stain - Final Fluid - Thoracentesis Fluid Body Fluid Culture - Preliminary No growth-Final to follow Laboratory Tests Past 24 Hrs 10/02/18 10/02/18 10/02/18 11:28 11:28 16:10 WBC RBC Hgb Hct MCV MCH MCHC RDW Std Deviation RDW Coeff of Mckenzie Plt Count MPV Immature Gran % (Auto) Neut % (Auto) Lymph % (Auto) [place] % (Auto) Eos % (Auto) Baso % (Auto) Absolute Neuts (auto) Absolute Nucleated RBC Nucleated RBC % Differential Comment Diff Path Review Reviewed Sodium Potassium Chloride Carbon Dioxide Anion Gap BUN Creatinine Estim Creat Clear Calc Est GFR (MDRD) Af Amer Est GFR (MDRD) Non-Af BUN/Creatinine Ratio Glucose Calcium Lactate Dehydrogenase 202 Total Protein 8.8 H Globulin 6.4 H Albumin/Globulin Ratio 0.4 L Fluid Source Fluid Color Fluid Appearance Fluid WBC Fluid RBC Fluid Tot Cell Count Fld Polynuclear WBCs # Fld Polynuclear WBCs % Fluid Mononuclear WBCs Fld Mononuclear WBCs % Fluid Neutrophils Fluid Lymphocytes Fluid Monocytes Fluid Macrophages Fl Pathologist Comment Fluid Glucose 67 Fluid Total Protein Fluid LDH Fluid Comment 2 Miscellaneous Cytology 10/02/18 10/02/18 10/02/18 16:10 16:10 16:10 WBC RBC Hgb Hct MCV MCH MCHC RDW Std Deviation RDW Coeff of Mckenzie Plt Count MPV Immature Gran % (Auto) Neut % (Auto) Lymph % (Auto) [place] % (Auto) Eos % (Auto) Baso % (Auto) Absolute Neuts (auto) Absolute Nucleated RBC Nucleated RBC % Differential Comment Diff Path Review Sodium Potassium Chloride Carbon Dioxide Anion Gap BUN Creatinine Estim Creat Clear Calc Est GFR (MDRD) Af Amer Est GFR (MDRD) Non-Af BUN/Creatinine Ratio Glucose Calcium Lactate Dehydrogenase Total Protein Globulin Albumin/Globulin Ratio Fluid Source THORACENTESIS Fluid Color RED Fluid Appearance CLOUDY Fluid WBC 0.698 Fluid RBC 0.047 Fluid Tot Cell Count 0.713 Fld Polynuclear WBCs # 0.037 Fld Polynuclear WBCs % 5.3 Fluid Mononuclear WBCs 0.661 Fld Mononuclear WBCs % 94.7 Fluid Neutrophils 4 Fluid Lymphocytes 79 Fluid Monocytes 13 Fluid Macrophages 4 Fl Pathologist Comment Reviewed Fluid Glucose Fluid Total Protein 4.7 Fluid LDH 226 Fluid Comment 2 SEE COMMENT Miscellaneous Cytology Pending 10/03/18 10/03/18 05:25 05:25 WBC 32.2 H* RBC 3.19 L Hgb 9.3 L Hct 29.0 L MCV 90.9 MCH 29.2 MCHC 32.1 RDW Std Deviation 47.1 H RDW Coeff of Mckenzie 14.4 Plt Count 232 MPV 10.5 Immature Gran % (Auto) 0.300 Neut % (Auto) 15.7 L Lymph % (Auto) 75.4 H [place] % (Auto) 8.1 Eos % (Auto) 0.3 Baso % (Auto) 0.2 Absolute Neuts (auto) Not Reportable Absolute Nucleated RBC 0.00 Nucleated RBC % 0 Differential Comment COMMENT Diff Path Review Reviewed Sodium 144 Potassium 4.2 Chloride 108 H Carbon Dioxide 30.0 Anion Gap 6 BUN 25 H Creatinine 0.74 Estim Creat Clear Calc 53.50 Est GFR (MDRD) Af Amer 131 Est GFR (MDRD) Non-Af 108 BUN/Creatinine Ratio 33.7 H Glucose 79 Calcium 9.1 Lactate Dehydrogenase Total Protein Globulin Albumin/Globulin Ratio Fluid Source Fluid Color Fluid Appearance Fluid WBC Fluid RBC Fluid Tot Cell Count Fld Polynuclear WBCs # Fld Polynuclear WBCs % Fluid Mononuclear WBCs Fld Mononuclear WBCs % Fluid Neutrophils Fluid Lymphocytes Fluid Monocytes Fluid Macrophages Fl Pathologist Comment Fluid Glucose Fluid Total Protein Fluid LDH Fluid Comment 2 Miscellaneous Cytology Assessment/Plan All Active Problems (Last Updated 08/26/18 @ 10:08 by Sho Mars) Generalized weakness (Acute) Acute respiratory failure with hypoxia (Acute) Lung mass (Acute) Squamous cell carcinoma of left lung Malignant pleural effusion I have reviewed my findings with Dr. Ruby, who also participated in development of the following plan. Will plan for placement of a PleurX catheter as an outpatient early next week. The proposed technique, risks and benefits were discussed with the patient and his , and they have had the opportunity to ask questions and have questions answered. The patient wishes to proceed with PleurX placement. We appreciate the opportunity to participate in this patient's care
--- NOTE | 2018-10-03 15:42 | CASEMGMT ---
Addendum entered by Zuleika Serna 10/03/18 16:23: RN said patient is an assist of 2 people. SW spoke with patient's about how she will manage him at home. She said they did fine before. She said it takes him a little while to get going, but they manage. She said his sons are coming over and they can help and her sister will be here all week next week. SW will re-visit tomorrow. Zuleika GUO Addendum entered by Zuleika Serna 10/03/18 15:49: MORRIS spoke with Becca from Hospice and the plan is home with Hospice. She said they (Hospice) cannot get everything in the home tonight as he will need O2, hospital bed, and other equipment. MORRIS notified charge histotechnologist who notified PA. Plan: Home with Hospice tomorrow once equipment is set up. Zuleika GUO Original Note: Hospice is here meeting with patient and his . Zuleika GUO
--- NOTE | 2018-10-03 15:51 | PCM.PROGNOTE ---
<Oj Lieberman - Last Filed: 10/03/18 16:00> Patient Problems: Active and Suspected Problems (Last Updated 08/26/18 @ 10:08 by Sho Mars) Generalized weakness (Acute) Acute respiratory failure with hypoxia (Acute) Subjective: Ongoing SOB and conversational dyspnea. Ongoing confusion and weakness. Pt and agreeable to hospice today. Plan is for him to go home with hospice. Possibly he will have a pleuryx cath as an outpatient. - Physical Exam General: Alert, Cooperative, Confused, - - cachectic HEENT: Atraumatic, PERRLA, EOMI, Normocephalic Neck: Supple, No JVD, Negative Carotid Bruits Lungs: Diminished Cardiovascular: Regular rate, No murmurs Abdomen: Bowel Sounds Present, Soft, Non Tender Extremities: No edema, Capillary Refill Less than 3 Seconds Skin: No rashes, No breakdown Musculoskeletal: No Tenderness to Palpation of Joints or Extremities Neurological: Cranial nerves II-XII grossly intact Psych/Mental Status: Normal Affect, Appropriate, Alert and oriented to time, place, person, mood and affect Vital Signs Temp Pulse Resp BP Pulse Ox 98.5 F 88 20 H 105/65 95 10/03/18 08:35 10/03/18 11:30 10/03/18 08:35 10/03/18 08:35 10/03/18 08:35 Oxygen Flow Rate (L/min) [3] 6 Oxygen Flow Rate (L/min) [2] 6 Oxygen Flow Rate (L/min) [1 ( 6 Initial Baseline)] Oxygen Flow Rate (L/min) 4 Oxygen Delivery Method [3] Nasal Cannula Oxygen Delivery Method [2] Nasal Cannula Oxygen Delivery Method [1 ( Nasal Cannula Initial Baseline)] Oxygen Delivery Method Room Air Weight: 141 lb 8.588 oz Body Mass Index (BMI) 19.8 Intake and Output for Last 24 Hours 10/01/18 10/02/18 10/03/18 23:59 23:59 23:59 Intake Total 759.4 / 759.4 180 / 180 Output Total 150 / 150 Balance 759.4 / 759.4 30 / 30 Microbiology Past 72 Hours 10/02/18 16:10 Gram Stain - Final Fluid - Thoracentesis Fluid Body Fluid Culture - Preliminary No growth-Final to follow Laboratory Tests Past 24 Hrs 10/02/18 10/02/1819 11:28 11:28 16:10 WBC RBC Hgb Hct MCV MCH MCHC RDW Std Deviation RDW Coeff of Mckenzie Plt Count MPV Immature Gran % (Auto) Neut % (Auto) Lymph % (Auto) Maverick % (Auto) Eos % (Auto) Baso % (Auto) Absolute Neuts (auto) Absolute Nucleated RBC Nucleated RBC % Differential Comment Diff Path Review Reviewed Sodium Potassium Chloride Carbon Dioxide Anion Gap BUN Creatinine Estim Creat Clear Calc Est GFR (MDRD) Af Amer Est GFR (MDRD) Non-Af BUN/Creatinine Ratio Glucose Calcium Lactate Dehydrogenase 202 Total Protein 8.8 H Globulin 6.4 H Albumin/Globulin Ratio 0.4 L Fluid Source Fluid Color Fluid Appearance Fluid WBC Fluid RBC Fluid Tot Cell Count Fld Polynuclear WBCs # Fld Polynuclear WBCs % Fluid Mononuclear WBCs Fld Mononuclear WBCs % Fluid Neutrophils Fluid Lymphocytes Fluid Monocytes Fluid Macrophages Fl Pathologist Comment Fluid Glucose 67 Fluid Total Protein Fluid LDH Fluid Comment 2 Miscellaneous Cytology 10/02/18 10/02/18 10/02/18 16:10 16:10 16:10 WBC RBC Hgb Hct MCV MCH MCHC RDW Std Deviation RDW Coeff of Mckenzie Plt Count MPV Immature Gran % (Auto) Neut % (Auto) Lymph % (Auto) Maverick % (Auto) Eos % (Auto) Baso % (Auto) Absolute Neuts (auto) Absolute Nucleated RBC Nucleated RBC % Differential Comment Diff Path Review Sodium Potassium Chloride Carbon Dioxide Anion Gap BUN Creatinine Estim Creat Clear Calc Est GFR (MDRD) Af Amer Est GFR (MDRD) Non-Af BUN/Creatinine Ratio Glucose Calcium Lactate Dehydrogenase Total Protein Globulin Albumin/Globulin Ratio Fluid Source THORACENTESIS Fluid Color RED Fluid Appearance CLOUDY Fluid WBC 0.698 Fluid RBC 0.047 Fluid Tot Cell Count 0.713 Fld Polynuclear WBCs # 0.037 Fld Polynuclear WBCs % 5.3 Fluid Mononuclear WBCs 0.661 Fld Mononuclear WBCs % 94.7 Fluid Neutrophils 4 Fluid Lymphocytes 79 Fluid Monocytes 13 Fluid Macrophages 4 Fl Pathologist Comment Reviewed Fluid Glucose Fluid Total Protein 4.7 Fluid LDH 226 Fluid Comment 2 SEE COMMENT Miscellaneous Cytology Pending 10/03/18 10/03/18 05:25 05:25 WBC 32.2 H* RBC 3.19 L Hgb 9.3 L Hct 29.0 L MCV 90.9 MCH 29.2 MCHC 32.1 RDW Std Deviation 47.1 H RDW Coeff of Mckenzie 14.4 Plt Count 232 MPV 10.5 Immature Gran % (Auto) 0.300 Neut % (Auto) 15.7 L Lymph % (Auto) 75.4 H Maverick % (Auto) 8.1 Eos % (Auto) 0.3 Baso % (Auto) 0.2 Absolute Neuts (auto) Not Reportable Absolute Nucleated RBC 0.00 Nucleated RBC % 0 Differential Comment COMMENT Diff Path Review Reviewed Sodium 144 Potassium 4.2 Chloride 108 H Carbon Dioxide 30.0 Anion Gap 6 BUN 25 H Creatinine 0.74 Estim Creat Clear Calc 53.50 Est GFR (MDRD) Af Amer 131 Est GFR (MDRD) Non-Af 108 BUN/Creatinine Ratio 33.7 H Glucose 79 Calcium 9.1 Lactate Dehydrogenase Total Protein Globulin Albumin/Globulin Ratio Fluid Source Fluid Color Fluid Appearance Fluid WBC Fluid RBC Fluid Tot Cell Count Fld Polynuclear WBCs # Fld Polynuclear WBCs % Fluid Mononuclear WBCs Fld Mononuclear WBCs % Fluid Neutrophils Fluid Lymphocytes Fluid Monocytes Fluid Macrophages Fl Pathologist Comment Fluid Glucose Fluid Total Protein Fluid LDH Fluid Comment 2 Miscellaneous Cytology Medical Necessity - Tobacco Use Smoking Status: Former smoker Assessment/Plan All Active Problems (Last Updated 08/26/18 @ 10:08 by Sho Mars) Generalized weakness (Acute) Acute respiratory failure with hypoxia (Acute) Lung mass (Acute) 1. Acute hypoxic respiratory failure 2/2 Recurrent malignant pleural effusion, 2/2 squamous cell carinoma of the lung, stage IV - Oncology following. No further treatment of the cancer indicated. Pt will go hospice. Gen surgery consulted to arrange for palliative pleuryx cath. - cxr with left opacification, persistent after thora. ->1000cc out on thora -off O2. -may need home o2. DVT ppx: SCDs DC planning: home with hospice tomorrow This patient was seen by Oj Lieberman PA-C under the supervision of Dr. Cintron. <Holli Cintron - Last Filed: 10/03/18 16:26> - Physical Exam Vital Signs Temp Pulse Resp BP Pulse Ox 98.5 F 88 20 H 105/65 95 10/03/18 08:35 10/03/18 11:30 10/03/18 08:35 10/03/18 08:35 10/03/18 08:35 Oxygen Flow Rate (L/min) [3] 6 Oxygen Flow Rate (L/min) [2] 6 Oxygen Flow Rate (L/min) [1 ( 6 Initial Baseline)] Oxygen Flow Rate (L/min) 4 Oxygen Delivery Method [3] Nasal Cannula Oxygen Delivery Method [2] Nasal Cannula Oxygen Delivery Method [1 ( Nasal Cannula Initial Baseline)] Oxygen Delivery Method Room Air Weight: 64.2 kg Body Mass Index (BMI) 19.8 Intake and Output for Last 24 Hours 10/01/18 10/02/18 10/03/18 23:59 23:59 23:59 Intake Total 759.4 / 759.4 180 / 180 Output Total 150 / 150 Balance 759.4 / 759.4 30 Microbiology Past 72 Hours 10/02/18 16:10 Gram Stain - Final Fluid - Thoracentesis Fluid Body Fluid Culture - Preliminary No growth-Final to follow Laboratory Tests Past 24 Hrs 10/02/18 10/02/18 10/02/18 11:28 11:28 16:10 WBC RBC Hgb Hct MCV MCH MCHC RDW Std Deviation RDW Coeff of Mckenzie Plt Count MPV Immature Gran % (Auto) Neut % (Auto) Lymph % (Auto) Maverick % (Auto) Eos % (Auto) Baso % (Auto) Absolute Neuts (auto) Absolute Nucleated RBC Nucleated RBC % Differential Comment Diff Path Review Reviewed Sodium Potassium Chloride Carbon Dioxide Anion Gap BUN Creatinine Estim Creat Clear Calc Est GFR (MDRD) Af Amer Est GFR (MDRD) Non-Af BUN/Creatinine Ratio Glucose Calcium Lactate Dehydrogenase 202 Total Protein 8.8 H Globulin 6.4 H Albumin/Globulin Ratio 0.4 L Fluid Source Fluid Color Fluid Appearance Fluid WBC Fluid RBC Fluid Tot Cell Count Fld Polynuclear WBCs # Fld Polynuclear WBCs % Fluid Mononuclear WBCs Fld Mononuclear WBCs % Fluid Neutrophils Fluid Lymphocytes Fluid Monocytes Fluid Macrophages Fl Pathologist Comment Fluid Glucose 67 Fluid Total Protein Fluid LDH Fluid Comment 2 Miscellaneous Cytology 10/02/18 10/02/18 10/02/18 16:10 16:10 16:10 WBC RBC Hgb Hct MCV MCH MCHC RDW Std Deviation RDW Coeff of Mckenzie Plt Count MPV Immature Gran % (Auto) Neut % (Auto) Lymph % (Auto) Maverick % (Auto) Eos % (Auto) Baso % (Auto) Absolute Neuts (auto) Absolute Nucleated RBC Nucleated RBC % Differential Comment Diff Path Review Sodium Potassium Chloride Carbon Dioxide Anion Gap BUN Creatinine Estim Creat Clear Calc Est GFR (MDRD) Af Amer Est GFR (MDRD) Non-Af BUN/Creatinine Ratio Glucose Calcium Lactate Dehydrogenase Total Protein Globulin Albumin/Globulin Ratio Fluid Source THORACENTESIS Fluid Color RED Fluid Appearance CLOUDY Fluid WBC 0.698 Fluid RBC 0.047 Fluid Tot Cell Count 0.713 Fld Polynuclear WBCs # 0.037 Fld Polynuclear WBCs % 5.3 Fluid Mononuclear WBCs 0.661 Fld Mononuclear WBCs % 94.7 Fluid Neutrophils 4 Fluid Lymphocytes 79 Fluid Monocytes 13 Fluid Macrophages 4 Fl Pathologist Comment Reviewed Fluid Glucose Fluid Total Protein 4.7 Fluid LDH 226 Fluid Comment 2 SEE COMMENT Miscellaneous Cytology Pending 10/03/18 10/03/18 05:25 05:25 WBC 32.2 H* RBC 3.19 L Hgb 9.3 L Hct 29.0 L MCV 90.9 MCH 29.2 MCHC 32.1 RDW Std Deviation 47.1 H RDW Coeff of Mckenzie 14.4 Plt Count 232 MPV 10.5 Immature Gran % (Auto) 0.300 Neut % (Auto) 15.7 L Lymph % (Auto) 75.4 H Maverick % (Auto) 8.1 Eos % (Auto) 0.3 Baso % (Auto) 0.2 Absolute Neuts (auto) Not Reportable Absolute Nucleated RBC 0.00 Nucleated RBC % 0 Differential Comment COMMENT Diff Path Review Reviewed Sodium 144 Potassium 4.2 Chloride 108 H Carbon Dioxide 30.0 Anion Gap 6 BUN 25 H Creatinine 0.74 Estim Creat Clear Calc 53.50 Est GFR (MDRD) Af Amer 131 Est GFR (MDRD) Non-Af 108 BUN/Creatinine Ratio 33.7 H Glucose 79 Calcium 9.1 Lactate Dehydrogenase Total Protein Globulin Albumin/Globulin Ratio Fluid Source Fluid Color Fluid Appearance Fluid WBC Fluid RBC Fluid Tot Cell Count Fld Polynuclear WBCs # Fld Polynuclear WBCs % Fluid Mononuclear WBCs Fld Mononuclear WBCs % Fluid Neutrophils Fluid Lymphocytes Fluid Monocytes Fluid Macrophages Fl Pathologist Comment Fluid Glucose Fluid Total Protein Fluid LDH Fluid Comment 2 Miscellaneous Cytology Assessment/Plan This patient was seen in conjunction with KELSEY Morton. I have independently interviewed and examined the patient and reviewed pertinent historical, laboratory, and other data. Please refer to KELSEY Morton note for his patient's presentation, findings, and recommendations. I have reviewed and his note and concur with his documentation 78-year-old male with diagnosis of left squamous cell lung CA with pleural effusion, status post radiation therapy who comes in with progressive shortness of breath and found to have malignant pleural effusion. Patient was seen and examined. Appeared confused. Was delirious overnight. Appreciate oncology and pulmonology consult. Had a multidisciplinary discussion with the patient and his and his friend at the bedside. Present in this discussion was web content & social media manager, RN p.m., nurse practitioner. Patient the confirmed that the plan is for hospice. Patient appeared sad and tearful. The said everything has happened so fast. They are agreeable for hospice to come and talk to them. Discussed with general surgery, Dr. Ruby about putting Pleurx catheter, this will be done in the outpatient on October 08 either at 11 AM or 5 PM. Physical Exam: Gen: cachetic, looks in some discomfort, not pale, not jaundiced CVS:HS I +II, regular, no murmurs RESP: Diminished GI: BS present and normal, soft, nontender, no palpable organs EXT:No edema ASSESSMENT: 1. Acute hypoxic respiratory failure 2. Recurrent malignant pleural effusion status post thoracocentesis on 10/02/18 3. Stage IV squamous cell CA of the lung 4. Severe protein calorie malnutrition Plan: Hospice consult Outpatient Pleurx catheter placement Assess for ambulatory oxygen Possible DC in a.m. Time spent discussing goals of care, hospice referral, life expectancy was 25 minutes. All questions were answered. Code Visit Inpatient E&M: 84856 Subs Hosp L3 Procedures: 16618 Advncd Care Plan 30 Min
[2018-10-03] MEDS: Senna/Docusate Sodium 1 Tablet 2 TABLET PO (21:10)
[2018-10-03] MEDS: guaiFENesin 10 ML UDC (200MG/10ML) 20 ML PO (21:21)
[2018-10-04] VITALS (20 sets, daily range): BP systolic 93–148; BP diastolic 52–73; PULSE 78–110; RESP 16–30; TEMP 36.2–37.3; O2SAT 92–99; BMI 19.3
--- NOTE | 2018-10-04 10:06 | RAD_ITS ---
STUDY: X-RAY CHEST REASON FOR EXAM: Male, 78 years old. Shortness of breath TECHNIQUE: Single AP portable view of the chest. COMPARISON: 10/02/2018 FINDINGS: EKG leads overlie the chest Right lung is expanded without a superimposed process. After thoracentesis there is now some visualization of the left lung but very limited normal left lung is noted, there is persistent near complete opacification of the left hemithorax, likely combination of effusion and atelectasis and perhaps infiltrate. There is no mediastinal shift. Heart, mediastinum, and aorta cannot be evaluated due to the opacification in the left hemithorax There are diffuse degenerative changes of the visualized thoracic spine. There is degenerative osteoarthritis of the bilateral shoulders. There is no demonstrated abnormality of the visualized soft tissue structures of the upper abdomen. RAD/Chest 1 View (Portable) IMPRESSION: No interval change Electronically Signed: Junior Magaña MD at 10:50 EDT , Service support ,
--- NOTE | 2018-10-04 10:09 | PCM.PN.PUL ---
Patient Problems: Active and Suspected Problems (Last Updated 08/26/18 @ 10:08 by Sho Mars) Generalized weakness (Acute) Acute respiratory failure with hypoxia (Acute) Subjective: Patient remains confused this morning. Patient is denying any pain, shortness of breath, nausea or vomiting. Patient was compliant with supplemental oxygen. Patient remains alert and oriented only to self. No family at the bedside during my evaluation. - Physical Exam General: Alert, Confused, Disoriented, - - No conversational dyspnea. HEENT: Atraumatic, PERRLA, EOMI, Normocephalic, - - No scleral icterus or injection noted. Oral: Moist Mucosa, No Gingival or Mucosal Lesions/ Ulcerations Neck: Supple, No JVD, No Nodes, Trachea Midline Lungs: No rhonchi, No wheeze, No rales, Diminished - Left hemithorax Cardiovascular: Regular rate, Regular Rhythm, Normal S1, Normal S2, Murmur, No rub noted, No Gallop Abdomen: Bowel Sounds Present, Soft, Non Tender, Non-Distended Extremities: No clubbing, No cyanosis, No edema, Capillary Refill Less than 3 Seconds Skin: - - No significant change compared to previous Musculoskeletal: No Tenderness to Palpation of Joints or Extremities, Muscle Wasting Lymphatic: No Cervical, Supraclavicular, or Inguinal Adenopathy Neurological: Cranial nerves II-XII grossly intact, Neuro grossly intact Psych/Mental Status: Flat Affect Vital Signs Temp Pulse Resp BP Pulse Ox 37.1 C 106 H 30 H 148/63 H 95 10/04/18 09:20 10/04/18 09:20 10/04/18 09:20 10/04/18 09:20 10/04/18 09:20 Oxygen Flow Rate (L/min) [3] 6 Oxygen Flow Rate (L/min) [2] 6 Oxygen Flow Rate (L/min) [1 ( 6 Initial Baseline)] Oxygen Flow Rate (L/min) 2 Oxygen Delivery Method [3] Nasal Cannula Oxygen Delivery Method [2] Nasal Cannula Oxygen Delivery Method [1 ( Nasal Cannula Initial Baseline)] Oxygen Delivery Method Nasal Cannula Weight: 62.6 kg Body Mass Index (BMI) 19.8 Intake and Output for Last 24 Hours 10/02/18 10/03/18 10/04/18 23:59 23:59 23:59 Intake Total 759.4 / 759.4 430 / 430 50 / 50 Output Total 1250 / 1250 0 / 0 Balance 759.4 / 759.4 -820 / -820 50 / 50 Microbiology Past 72 Hours 10/02/18 16:10 Gram Stain - Final Fluid - Thoracentesis Fluid Body Fluid Culture - Preliminary No growth-Final to follow Laboratory Tests Past 24 Hrs 10/02/18 10/02/18 10/03/18 11:28 16:10 05:25 Diff Path Review Reviewed Reviewed Fl Pathologist Comment Reviewed Medical Necessity - Tobacco Use Smoking Status: Former smoker Assessment/Plan All Active Problems (Last Updated 08/26/18 @ 10:08 by Sho Mars) Generalized weakness (Acute) Acute respiratory failure with hypoxia (Acute) Lung mass (Acute) RECOMMENDATIONS: 1. Consider CODE STATUS evaluation with 2. Await oncology recommendations 3. Agree with Pleurx placement early next week 4. Delirium protocol 5. Supplemental oxygen to keep saturations greater than 90% at all times IMPRESSIONS: 1. Acute hypoxic respiratory insufficiency secondary to recurrent left-sided malignant effusion in the setting of squamous cell carcinoma Last thoracentesis was exudative, along with current thoracentesis. Fluid cytology at that time it showed rare atypical epithelioid cells with squamous immunophenotype. Rapid reaccumulation confirms probable malignant pleural effusion. Family continues to be resistant to changing CODE STATUS. Given rapid reaccumulation, placement of a Pleurx catheter would be appropriate. Would defer to oncology if patient should continue with chemo and radiation. Patient should have a walking oximetry prior to discharge 2. Acute delirium/metabolic encephalopathy Patient is very delirious at this time. This is a barrier to care as he is not allowing supplemental oxygen. Patient does not have any significant electrolyte abnormalities that require repletion. Address sensory deprivation. Keep lines open and follow delirium protocol. 3. Advanced age/generalized weakness/low functional capacity/severe protein calorie malnutrition Complicates care, management, recovery and prognosis. Dietitian has been consulted, but given patient's current mental status, it is unclear if he will be able to follow directions or agree with supplementation. Code Visit Inpatient E&M: 25820 Subs Hosp L2
[2018-10-04 10:39] LABS: International Normalized Ratio 1.4; Prothrombin Time (Protime)PT. 16.5 SECONDS (11.7-14.9)
[2018-10-04 10:40] LABS: Partial Thromboplast Time 36.5 Seconds (24.1-36.2)
[2018-10-04] MEDS: Dextrose 5%/0.9% NaCl 1,000 ML 75 ML IV (10:40)
[2018-10-04] MEDS: 0.9% NaCl Peripheral Flush Adult/Peds IV (10:41)
--- NOTE | 2018-10-04 10:51 | CASEMGMT ---
RN CM Note: Attempted to complete F[facility] form. not in room and pt unable to understand to sign form at this time. Noel CASTRON RN ACM
--- NOTE | 2018-10-04 11:05 | CASEMGMT ---
Physician feels patient needs the Inpatient Hospice Unit. She arranged for a Pleurex cath to be placed today at 4p. SW called Hospice and updated Isabelle on this plan. SW also told her the physician would like him to go to Inpatient Unit today if possible. Physician will talk with patient's when she comes in to [facility] today. Plan: Pleurex cath today at 4p. Possible transfer to [facility] Inpatient [facility]. Zuleika MCCOY MSW
--- NOTE | 2018-10-04 11:29 | DCINST_ITS ---
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) Generalized weakness (Acute) Acute respiratory failure with hypoxia (Acute) Reason(s) for Visit for Discharge Instructions: Shortness of breath You will use the following diet at home:: Regular Your food should be the consistency of: Regular Your liquids should be the consistency of: Regular/Thin Discharge Activity: Return to Normal Activity Allergies/Adverse Reactions: Allergies No Known Allergies Allergy (Verified 10/02/18 10:27) Primary Care Physician: Care Physician,No Primary [Primary Care Provider] - Please follow up with your Primary Care Physician in: as directed Test Results: Test results from this visit will be discussed in further detail at your follow- up appointment, if applicable. Please Follow Up With: Rito Ruby MD When: 10/03/2018 Please Follow Up With: Alex Quiroz MD When: 1 week Proposed Discharge Date: 10/03/18
--- NOTE | 2018-10-04 11:30 | PCM.DC.SUM ---
Discharge Date and Diagnosis - Problem List Patient Problems: Active and Suspected Problems (Last Updated 08/26/18 @ 10:08 by Sho Mars) Generalized weakness (Acute) Acute respiratory failure with hypoxia (Acute) Date of Admission: 10/02/18 Date of Discharge: 10/04/18 - Primary Discharge Diagnosis Active and Suspected Problems (Last Updated 08/26/18 @ 10:08 by Sho Mars) Generalized weakness (Acute) Acute respiratory failure with hypoxia (Acute) - Secondary Discharge Diagnosis Chronic Problems (Last Updated 08/26/18 @ 10:08 by Sho Mars) Recurrent malignant pleural effusion (Chronic) Squamous cell cancer of left lung (Chronic) Hospital Course and Treatment Imaging Results: 10/04/18 09:36 Thoracentesis W US [US] Urgent 10/04/18 10:06 Chest 1 View (Portable) [RAD] Urgent Operations: None Summary of Care Provided: The patient is a 78 year old M [] Patient Problems: Active and Suspected Problems (Last Updated 08/26/18 @ 10:08 by Sho Mars) Generalized weakness (Acute) Acute respiratory failure with hypoxia (Acute) - Physical Exam Vital Signs Temp Pulse Resp BP Pulse Ox 98.9 F 87 30 H 127/71 H 96 10/04/18 10:20 10/04/18 10:20 10/04/18 10:20 10/04/18 10:20 10/04/18 10:20 Oxygen Flow Rate (L/min) [3] 6 Oxygen Flow Rate (L/min) [2] 6 Oxygen Flow Rate (L/min) [1 ( 6 Initial Baseline)] Oxygen Flow Rate (L/min) 2 Oxygen Delivery Method [3] Nasal Cannula Oxygen Delivery Method [2] Nasal Cannula Oxygen Delivery Method [1 ( Nasal Cannula Initial Baseline)] Oxygen Delivery Method Nasal Cannula Weight: 62.6 kg Body Mass Index (BMI) 19.8 Intake and Output for Last 24 Hours 10/02/18 10/03/18 10/04/18 23:59 23:59 23:59 Intake Total 759.4 / 759.4 430 / 430 50 / 50 Output Total 1250 / 1250 0 / 0 Balance 759.4 / 759.4 -820 / -820 50 / 50 Microbiology Past 72 Hours 10/02/18 16:10 Gram Stain - Final Fluid - Thoracentesis Fluid Body Fluid Culture - Preliminary No growth-Final to follow Laboratory Tests Past 24 Hrs 10/02/18 10/02/18 10/03/18 11:28 16:10 05:25 Diff Path Review Reviewed Reviewed PT INR APTT Fl Pathologist Comment Reviewed 10/04/18 10:16 Diff Path Review PT 16.5 H INR 1.4 APTT 36.5 H Fl Pathologist Comment Discharge Diet: No Restrictions Discharge Activity: Return to Normal Activity Primary Care Physician: Care Physician,No Primary [Primary Care Provider] - Please follow up with your Primary Care Physician in: as directed Please Follow Up With: Rito Ruby MD When: 10/03/2018 Please Follow Up With: Alex Quiroz MD When: 1 week Disposition: Home with Hospice Medical Necessity - Tobacco Use Smoking Status: Former smoker
--- NOTE | 2018-10-04 11:34 | CON.PCM_ITS ---
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 Patient has had recurrent effusions and had paracentesis a few days ago. His lung has reaccumulated fluid and he is short of breath. 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) Medical History: Medical History (Last Updated 08/26/18 @ 10:08 by Sho Mars) History of pneumonia Z87.01 Localized swelling, mass or lump of neck R22.1 Other nonspecific abnormal finding of lung field R91.8 Allergies No Known Allergies Allergy (Verified 10/02/18 10:27) Surgical History: noncontributory Smoking Status: Former smoker - *Family History Paternal Family History: Family History (Last Updated 08/26/18 @ 10:03 by Sho Mars) Brother Throat cancer Father Heart disease Emphysema of lung Mother Diabetes Review of Systems Constitutional: Reports: Anorexia. Denies: Fever HEENT: Reports: Difficulty Hearing Respiratory: Reports: Shortness of Breath Gastrointestinal: Denies: Abdominal Pain Genitourinary: Reports: Retention Neurological: Reports: Balance problems Patient Problems: Active and Suspected Problems (Last Updated 08/26/18 @ 10:08 by Sho Mars) Generalized weakness (Acute) Acute respiratory failure with hypoxia (Acute) - Physical Exam General: Alert, Oriented x3 Lungs: Diminished - Diminished on the left Cardiovascular: Regular rate Abdomen: Soft, Non Tender, Non-Distended Musculoskeletal: No Muscle Wasting Lymphatic: No Cervical, Supraclavicular, or Inguinal Adenopathy Neurological: Cranial nerves II-XII grossly intact Psych/Mental Status: Normal Affect Vital Signs Temp Pulse Resp BP Pulse Ox 98.9 F 87 30 H 127/71 H 96 10/04/18 10:20 10/04/18 10:20 10/04/18 10:20 10/04/18 10:20 10/04/18 10:20 Oxygen Flow Rate (L/min) [3] 6 Oxygen Flow Rate (L/min) [2] 6 Oxygen Flow Rate (L/min) [1 ( 6 Initial Baseline)] Oxygen Flow Rate (L/min) 2 Oxygen Delivery Method [3] Nasal Cannula Oxygen Delivery Method [2] Nasal Cannula Oxygen Delivery Method [1 ( Nasal Cannula Initial Baseline)] Oxygen Delivery Method Nasal Cannula Weight: 138 lb 0.15 oz Body Mass Index (BMI) 19.8 Intake and Output for Last 24 Hours 10/02/18 10/03/18 10/04/18 23:59 23:59 23:59 Intake Total 759.4 / 759.4 430 / 430 50 / 50 Output Total 1250 / 1250 0 / 0 Balance 759.4 / 759.4 -820 / -820 50 / 50 Microbiology Past 72 Hours 10/02/18 16:10 Gram Stain - Final Fluid - Thoracentesis Fluid Body Fluid Culture - Preliminary No growth-Final to follow Laboratory Tests Past 24 Hrs 10/02/18 10/02/18 10/03/18 11:28 16:10 05:25 Diff Path Review Reviewed Reviewed PT INR APTT Fl Pathologist Comment Reviewed 10/04/18 10:16 Diff Path Review PT 16.5 H INR 1.4 APTT 36.5 H Fl Pathologist Comment Clinical Impression(s) from Imaging Studies Chest X-Ray 10/04/18 10:06 IMPRESSION: No interval change Electronically Signed: Junior Magaña MD at 10:50 EDT , Service support , Assessment/Plan All Active Problems (Last Updated 08/26/18 @ 10:08 by Sho Mars) Generalized weakness (Acute) Acute respiratory failure with hypoxia (Acute) Lung mass (Acute) 78-year-old male with left lung cancer and recurrent effusion 1. I was consulted for placement of Pleurx catheter. Patient is going to hospice. I discussed Pleurx catheter with the patient and his family members. His signed his consent as he is confused. I explained the risks of the procedure including but not limited to bleeding, infection, injury to lung, n erve or blood vessel damage. Patient's agrees to the procedure and she understands all the risks. Shailesh Briones MD Pager: [facility] [address] [place] [address], [facility] [address] [place] [address] Office:
--- NOTE | 2018-10-04 12:32 | CASEMGMT ---
Physician spoke with patient's today. She is in agreement with the Inpatient Hospice Unit and DNRCC-A code status. SW called [facility] and per Isabelle Reynoso has already approved patient to go to Inpatient Unit. After he has had his pleurex catheter placed staff can arrange for transport to send patient over. MORRIS will notify staff. DNRCC-A faxed to Hospice. Plan: [facility] Inpatient Unit. Staff to arrange transport. Zuleika MCCOY DEPUTY REGISTER OF DEEDS
[2018-10-04] MEDS: Morphine 2 MG/ML Syringe 0.5 MG IV (12:50)
--- NOTE | 2018-10-04 14:24 | NURSING ---
pt off floor at this time for pleurex cath placement
--- NOTE | 2018-10-04 15:31 | CASEMGMT ---
Outpatient Admitting Clerk set up transportation for patient to go to Inpatient Hospice Unit. He will be picked up at 6:30p. SW called Isabelle at Hospice and let her know. Patient's is off the unit as patient is having surgery currently, RN will let know. Zuleika MCCOY JUNIOR SALES ASSISTANT
[2018-10-04] MEDS: Bupivacaine Mpf 0.5% 30 ML VIAL (15:47)
--- NOTE | 2018-10-04 16:20 | RAD_ITS ---
STUDY: X-RAY CHEST REASON FOR EXAM: Male, 78 years old. Chest tube placement TECHNIQUE: Single AP portable view of the chest. COMPARISON: 10/04/2018 FINDINGS: There is a left-sided chest tube overlying the left lung base. There is a left apical pneumothorax and loculated air noted at the peripheral left lung base, new since exam performed earlier today. Again seen is a large, loculated left pleural effusion and diffuse consolidation of the left lung in keeping with atelectasis and/or mass. The right lung is clear. No right pleural effusion or pneumothorax. Normal size heart. Normal mediastinum and bk. Normal visualized pulmonary arteries. Normal visualized aortic arch and descending thoracic aorta. Normal visualized thoracic spine. Normal visualized ribs, clavicles, and shoulders. There is no demonstrated abnormality of the visualized soft tissue structures of the upper abdomen. RAD/CXR for Line Placement IMPRESSION: Left apical pneumothorax and loculated air noted at the peripheral left lung base, new since exam performed earlier today. Left-sided chest tube overlies the left lung base. Again seen is a large, loculated left pleural effusion and diffuse consolidation of the left lung in keeping with atelectasis and/or mass. The right lung is clear. No right pleural effusion or pneumothorax. Electronically Signed: Ayo Brown, at 16:57 EDT Tel , Service support ,
--- NOTE | 2018-10-04 16:31 | PCM.OPRPT ---
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 He was placed in a semi-supine position with his head elevated. The left chest was examined using ultrasound and an appropriate intercostal space was selected. Next the left chest was prepped and draped in usual sterile fashion. An area over the rib was injected with lidocaine as well as a counterincision and a tract between the two. Next a needle was placed into the upper incision and into the pleura. Once pleural effusion was aspirated the needle was removed and a guidewire was placed through the catheter. The catheter was then removed and serial dilators were placed over the guidewire. These were inserted easily with no resistance. Next the peel-away sheath was placed over the guidewire and the guidewire was removed. The catheter was trimmed and placed on the tunneler and placed through the lower incision up to the upper incision and the catheter was pulled through until the cuff was under the skin. Next the catheter was placed into the peel-away sheath and the peel-away sheath was removed. The remainder of the catheter was placed flush under the skin. The catheter was then placed to suction through Pleur-evac system. The upper incision was then closed with 2 interrupted 4-0 Vicryl sutures and Steri-Strips. The catheter was sutured to the skin using 2-0 silk. The area was cleaned and a dressing was applied over both incisions. By the time patient reached PACU about 1000 cc of fluid was in the Pleur-evac and it was serous and blood-tinged. Patient tolerated the procedure well. Chest x-ray will be obtained in PACU. Grafts/Implants Used: Left Pleurx catheter - Admit VTE Documentation VTE Mechan Device Prophylaxis: SCD's
[2018-10-04] MEDS: Naloxone 0.4 MG/ML Syringe IV (18:49)
--- NOTE | 2018-10-04 19:15 | PCM.HOSP.N ---
Hospitalist Note DW family at bedside about patient's condition, pleural effusion, PTX, oncology recommendations for hospice. Patients was concerned. Explained the plan is to focus on symptom control, discontinue IVF. Patient will be monitored overnight to ensure no further worsening of PTX, and if not, then likely to be dc'd to hospice on the . Notified nursing about changes--DC telemetry, roxanol, intensol, symptom control. The patient's fswafnrh-fo-vha pulled me aside afterwards to state that she and her as well as other family members are on board with comfort measures, but stated that his is overwhelmed. I spent 20 minutes discussing with family about about advanced care planning. Code Visit Procedures: 68900 Advncd Care Plan 30 Min
[2018-10-05 01:42] VITALS: BP 104/42; PULSE 82; RESP 20; TEMP 36.4; O2SAT 95
[2018-10-05 03:02] VITALS: PULSE 83
[2018-10-05 04:06] VITALS: BP 124/67; PULSE 90; RESP 20; TEMP 37; O2SAT 96
--- NOTE | 2018-10-05 05:55 | RAD_ITS ---
HISTORY: Left pneumothorax with left chest tube placement EXAMINATION/TECHNIQUE: XR Chest 1 View: Portable COMPARISON: 10/04/2018 FINDINGS: EKG leads in place. Medical devices: The left chest tube appears unchanged in position. Previously seen left apical pneumothorax shows complete or near complete clearing. Residual left basilar small pneumothorax. Left pleural effusion is decreased in size with interval improved aeration of the left upper lobe. Persistent left basilar pleural effusion with obscuration of the left hemidiaphragm and lower left heart border. The right lung remains clear. The heart is normal in size. RAD/Chest 1 View (Portable) IMPRESSION: 1. Improvement with decreasing left pneumothorax and decreasing left pleural effusion. 2. The left chest tube is unchanged in position. at 0717 Reported and signed by: Cristian Bauer MD Electronically Signed: Cristian Bauer, at 7:16 EDT Tel , Service support ,
--- NOTE | 2018-10-05 07:12 | PCM.PN.HOSP ---
Patient Problems: Active and Suspected Problems (Last Updated 08/26/18 @ 10:08 by Sho Mars) Generalized weakness (Acute) Acute respiratory failure with hypoxia (Acute) Subjective: Late entry note: Patient was seen and examined on 10/04/18. Transfer to inpatient Hospice facility was planned but had to be cancelled after the procedure late last night. Patient continued to be confused. Discussed with the and children at the bedside. CODE STATUS made DNR CCA after explaining the various types of CODE STATUS. Objective: Physical Exam General: Alert, Cooperative, Confused, - - cachectic HEENT: Atraumatic, PERRLA, EOMI, Normocephalic Neck: Supple, No JVD, Negative Carotid Bruits Lungs: Diminished Cardiovascular: Regular rate, No murmurs Abdomen: Bowel Sounds Present, Soft, Non Tender Extremities: No edema, Capillary Refill Less than 3 Seconds Skin: No rashes, No breakdown Musculoskeletal: No Tenderness to Palpation of Joints or Extremities Neurological: Cranial nerves II-XII grossly intact Psych/Mental Status: Normal Affect, Appropriate, Alert and oriented to time, place, person, mood and affect Vitals/I&O's: Vital Signs Temp Pulse Resp BP Pulse Ox 98.6 F 90 20 H 124/67 H 96 10/05/18 04:06 10/05/18 04:06 10/05/18 04:06 10/05/18 04:06 10/05/18 04:06 Oxygen Flow Rate (L/min) [3] 6 Oxygen Flow Rate (L/min) [2] 6 Oxygen Flow Rate (L/min) [1 ( 6 Initial Baseline)] Oxygen Flow Rate (L/min) 4 Oxygen Delivery Method [3] Nasal Cannula Oxygen Delivery Method [2] Nasal Cannula Oxygen Delivery Method [1 ( Nasal Cannula Initial Baseline)] Oxygen Delivery Method Nasal Cannula Weight: 61 kg Body Mass Index (BMI) 19.3 Intake and Output for Last 24 Hours 10/03/18 10/04/18 10/05/18 23:59 23:59 23:59 Intake Total 430 / 430 2070 / 2070 Output Total 1250 / 1250 3550 / 3550 425 / 425 Balance -820 / -820 -1479 / -1479 -425 / -425 Microbiology Past 72 Hours 10/02/18 16:10 Fluid - Thoracentesis Fluid Gram Stain - Final 10/02/18 16:10 Fluid - Thoracentesis Fluid Body Fluid Culture - Preliminary No growth-Final to follow 10/02/18 16:10 Fluid - Thoracentesis Fluid Anaerobic Culture - Preliminary No growth in 48 hours. Laboratory Results 10/04/18 10:16: PT 16.5 H, INR 1.4, APTT 36.5 H Current Medications Acetaminophen (Tylenol) 650 mg PO Q6H PRN PRN PRN Reason: Mild pain 1-3/Temp > 100.7 F Albuterol Sulfate (Ventolin Aerosols) 2.5 mg INHALATION Q2H PRN PRN PRN Reason: SOB/Wheezing Last Admin: 10/03/18 02:43 Dose: 2.5 mg Documented by: Guaifenesin (Robitussin) 20 ml PO Q4H PRN PRN PRN Reason: COUGH Last Admin: 10/03/18 21:21 Dose: 20 ml Documented by: Lorazepam (Ativan Intensol) 0.5 mg SL Q4H PRN PRN PRN Reason: ANXIETY Morphine Sulfate (Roxanol (Ir Oral Solution)) 10 mg SL/PO Q2H PRN PRN PRN Reason: pain. shortness of breath Ondansetron HCl (Zofran) 4 mg IV Q8H PRN PRN PRN Reason: NAUSEA/VOMITING Senna/Docusate Sodium (Senokot-S, Karen-Colace) 2 tablet PO BID PRN PRN PRN Reason: Constipation Last Admin: 10/03/18 21:10 Dose: 2 tablet Documented by: Medical Necessity - Tobacco Use Smoking Status: Former smoker Assessment/Plan All Active Problems (Last Updated 08/26/18 @ 10:08 by Sho Mars) Generalized weakness (Acute) Acute respiratory failure with hypoxia (Acute) Lung mass (Acute) 1. Acute hypoxic respiratory failure secondary to left pleural effusion, status post Pleurx catheter placement and thoracocentesis We will continue to wean off oxygen for SPO2 more than 94% 2. Recurrent malignant pleural effusion status post thoracocentesis on 10/02/18, status post Pleurx catheter placement on 10/04/18 3. Stage IV squamous cell CA of the lung 4. Severe protein calorie malnutrition, on supplements 5. Patient's CODE STATUS is DNR CCA, on hospice. Will be transferred to inpatient hospice facility Code Visit Inpatient E&M: 73662 Subs Hosp L3
--- NOTE | 2018-10-05 07:42 | PCM.PN.PUL ---
Patient Problems: Active and Suspected Problems (Last Updated 08/26/18 @ 10:08 by Sho Mars) Generalized weakness (Acute) Acute respiratory failure with hypoxia (Acute) Subjective: Patient did okay overnight. Patient remains confused this morning, but is denying any pain or dyspnea. Objective: Left-sided Pleurx catheter placed yesterday. 1600 cc noted in Pleur-evac this morning. Site was clean, dry and intact Cytology from pleural fluid has come back positive for malignant cells. - Physical Exam General: Alert, No apparent distress, Confused, Disoriented, - - Patient more interactive today. HEENT: Atraumatic, PERRLA, EOMI, Normocephalic, - - No scleral icterus or injection noted. Temporal wasting noted. Oral: Moist Mucosa Neck: Supple, No JVD, No Nodes, Trachea Midline Lungs: No rhonchi, No wheeze, No rales, Diminished - Much better air exchange in the left chest Cardiovascular: Regular rate, Regular Rhythm, Normal S1, Normal S2, No murmurs, No rub noted, No Gallop Abdomen: Bowel Sounds Present, Soft, Non Tender, Non-Distended Extremities: No clubbing, No cyanosis, No edema, Capillary Refill Less than 3 Seconds Skin: No rashes, No breakdown Musculoskeletal: No Tenderness to Palpation of Joints or Extremities Lymphatic: No Cervical, Supraclavicular, or Inguinal Adenopathy Neurological: Cranial nerves II-XII grossly intact, Neuro grossly intact, Motor Exam 5/5 strength throughout Psych/Mental Status: Flat Affect Vital Signs Temp Pulse Resp BP Pulse Ox 37.0 C 90 20 H 124/67 H 96 10/05/18 04:06 10/05/18 04:06 10/05/18 04:06 10/05/18 04:06 10/05/18 04:06 Oxygen Flow Rate (L/min) [3] 6 Oxygen Flow Rate (L/min) [2] 6 Oxygen Flow Rate (L/min) [1 ( 6 Initial Baseline)] Oxygen Flow Rate (L/min) 4 Oxygen Delivery Method [3] Nasal Cannula Oxygen Delivery Method [2] Nasal Cannula Oxygen Delivery Method [1 ( Nasal Cannula Initial Baseline)] Oxygen Delivery Method Nasal Cannula Weight: 61 kg Body Mass Index (BMI) 19.3 Intake and Output for Last 24 Hours 10/03/18 10/04/18 10/05/18 23:59 23:59 23:59 Intake Total 430 / 430 2071 / 2071 Output Total 1250 / 1250 3550 / 3550 425 / 425 Balance -820 / -820 -1479 / -1479 -425 / -425 Microbiology Past 72 Hours 10/02/18 16:10 Gram Stain - Final Fluid - Thoracentesis Fluid Body Fluid Culture - Preliminary No growth-Final to follow Anaerobic Culture - Preliminary No growth in 48 hours. Laboratory Tests Past 24 Hrs 10/04/18 10:16 PT 16.5 H INR 1.4 APTT 36.5 H Clinical Impression(s) from Imaging Studies Chest X-Ray 10/04/18 10:06 IMPRESSION: No interval change Electronically Signed: Junior Magaña MD at 10:50 EDT , Service support , Chest X-Ray 10/04/18 16:20 IMPRESSION: Left apical pneumothorax and loculated air noted at the peripheral left lung base, new since exam performed earlier today. Left-sided chest tube overlies the left lung base. Again seen is a large, loculated left pleural effusion and diffuse consolidation of the left lung in keeping with atelectasis and/or mass. The right lung is clear. No right pleural effusion or pneumothorax. Electronically Signed: Ayo Brown, at 16:57 EDT Tel , Service support , Chest X-Ray 10/05/18 05:55 IMPRESSION: 1. Improvement with decreasing left pneumothorax and decreasing left pleural effusion. 2. The left chest tube is unchanged in position. at 0717 Reported and signed by: Cristian Bauer MD Electronically Signed: Cristian Bauer, at 7:16 EDT Tel , Service support , Medical Necessity - Tobacco Use Smoking Status: Former smoker Assessment/Plan All Active Problems (Last Updated 08/26/18 @ 10:08 by Sho Mars) Generalized weakness (Acute) Acute respiratory failure with hypoxia (Acute) Lung mass (Acute) RECOMMENDATIONS: 1. Okay to go to hospice from my perspective 2. Good response to Pleurx catheter 3. Pleurx catheter management per surgery 4. Delirium protocol 5. Supplemental oxygen to keep saturations greater than 90% at all times IMPRESSIONS: 1. Acute hypoxic respiratory insufficiency secondary to recurrent left-sided malignant effusion in the setting of squamous cell carcinoma Last thoracentesis was exudative, along with current thoracentesis. Patient's most recent thoracentesis has come back positive with squamous cell cancer and possible lymphoproliferative disease. Family has elected for comfort measures, which I believe is appropriate. Patient has had good response to Pleurx catheter placement was 1600 cc removed. Patient appears to be comfortable and does not have significant discomfort at the procedure site. Okay to transition to hospice measures from my perspective. Would defer to surgery on the use of Pleur-evac versus home drainage bottles. 2. Acute delirium/metabolic encephalopathy Patient is very delirious at this time. Patient does appear to be following recommendations at this time. Patient does not have any significant electrolyte abnormalities that require repletion previously. Address sensory deprivation. Keep lines open and follow delirium protocol. 3. Advanced age/generalized weakness/low functional capacity/severe protein calorie malnutrition Complicates care, management, recovery and prognosis. Dietitian has been consulted, but given patient's current mental status, it is unclear if he will be able to follow directions or agree with supplementation. Code Visit Inpatient E&M: 01646 Subs Hosp L2
--- NOTE | 2018-10-05 07:59 | NURSING ---
Spoke with [facility] [employer]. She will work to arrange a nurse assessment and get the patient to the [facility] this am. Stated she will call us back with an update soon.
[2018-10-05 08:10] VITALS: O2SAT 86
[2018-10-05 08:41] VITALS: BP 118/62; PULSE 107; RESP 28; TEMP 36.8; O2SAT 96
[2018-10-05] MEDS: morphine (oral solution) 10MG/0.5ML Syringe 10 MG SL/PO (09:11)
[2018-10-05 11:30] VITALS: BP 118/62; PULSE 107; RESP 28; TEMP 36.8; O2SAT 96
--- NOTE | 2018-10-05 11:35 | NURSING ---
Report called to ARTURO Hamilton at Hospice.
--- NOTE | 2018-10-05 11:41 | PCM.PN.BLA ---
Progress Note Patient was seen and examined. His discharge was held by general surgery so he could be monitored last night. He is status post Pleurx catheter in has about 1600 mls out. He is off the oxygen, appears more comfortable, more interactive, less confused. No other acute events overnight. He denies any new complaints. He denies pain and pain His physical exam remains unchanged The general plan remains unchanged Patient will be discharged to inpatient hospice facility this morning
== END 2018-10-05 11:30 | disposition hospice, inpatient (51) | DRG 180 ==
LOC: ED 11:11 → PCU 14:52
PROVIDERS: Surgery; Admitting Provider Internal Medicine; Emergency Provider Emergency Medicine; Visit Provider Internal Medicine
PROC: 0W9B30Z Drainage of Left Pleural Cavity with Drainage Device, Percutaneous Approach (ICD-10-PCS; CPT 32550; principal; 2018-10-04 14:35)
DX: C34.92 Malignant neoplasm of unspecified part of left bronchus or lung (principal); E43 Unspecified severe protein-calorie malnutrition; J96.01 Acute respiratory failure with hypoxia; Z68.1 Body mass index [BMI] 19.9 or less, adult; J91.0 Malignant pleural effusion; Z87.891 Personal history of nicotine dependence; Z66 Do not resuscitate
CPT/HCPCS: 32555; 36415; 71045; 71046; 80048; 81001; 82945; 83615; 84156; 84157; 85025; 85610; 85730; 87070; 87075; 87205; 88108; 88305; 88313; 88341; 88342; 89050; 94640; 97802; 99285; J7030; J7040; A4216; C1729; J2310